=== PATIENT | male | born 1955 | race Caucasian/White ===

== ENCOUNTER 2020-02-08 09:23 | Outpatient (CLI) | payer OTHER, SELFPAY ==
--- NOTE | ~2020-02-08 | XR_ITS ---
EXAMINATION: XR lumbar spine min 4V EXAM DATE: 02/08/2020 09:49 INDICATION: Low back pain. TECHNIQUE: Lumber spine frontal, lateral, bilateral oblique projections. Coned down frontal and lat eral L5-S1 lumbar projections for interpretation. There is no prior study for comparison. FINDINGS: There is moderate lower lumbar facet arthropathy, mild upper lumbar facet arthropathy. Ther e is moderate disc disease at L5-S1. The vertebral bodies are aligned in the AP dimension. Vertebral body heights are maintained. No spondylolysis. Paraspinal soft tissue is unremarkable. Probable halie lithiasis. IMPRESSION: 1. Moderate lower lumbar facet arthropathy. 2. L5-S1 moderate disc disease.. Reviewed, dictated and finalized at location A.
--- NOTE | ~2020-02-08 | XR_ITS ---
EXAMINATION: XR thoracic spine 3V EXAM DATE: 02/08/2020 09:49 INDICATION: Thoracic pain. TECHNIQUE: Frontal and lateral projections of the thoracic spine as well as lateral swimmers projecti on of the upper thoracic spine for interpretation. Comparison is made to prior examination from 2016. FINDINGS: There is mild to moderate mid to lower thoracic disc disease and endplate osteophytes. Caleb tebral body heights are maintained. The vertebral bodies are aligned in the AP dimension. There are n o bony erosions identified. Paraspinal soft tissue is unremarkable. IMPRESSION: Mild to moderate mid to lower thoracic spondylosis. Reviewed, dictated and finalized at location A.
== END 2020-02-08 09:24 | disposition home or self-care (01) ==
PROVIDERS: PCP Family Medicine; Visit Provider Family Medicine
DX: M54.6 Pain in thoracic spine (principal); G89.29 Other chronic pain; M54.5 Low back pain; M47.814 Spondylosis without myelopathy or radiculopathy, thoracic region; M12.88 Other specific arthropathies, not elsewhere classified, other specified site; M51.9 Unspecified thoracic, thoracolumbar and lumbosacral intervertebral disc disorder
CPT/HCPCS: 72072; 72110

== ENCOUNTER 2020-02-10 07:32 | Outpatient (CLI) | payer OTHER, SELFPAY ==
--- NOTE | ~2020-02-10 | US_ITS ---
EXAMINATION: US right upper quadrant DATE: 02/10/2020 08:10 INDICATION: Gallstones. Back pain. TECHNIQUE: Multiple grayscale and Doppler ultrasound images of the abdomen were obtained. COMPARISON: CT dated 09/05/2018 and lumbar spine radiographs dated 02/08/2020 FINDINGS: Pancreatic body is suboptimally visualized but appears unremarkable. The head and tail of the pancrea s are not visualized. Liver has normal echogenicity and contour, with a smooth surface. No liver lesi on identified. No intrahepatic biliary duct dilation suspected. Portal venous flow was seen in the he patopetal, normal direction and has normal Doppler waveform. Mobile shadowing 6 mm gallstone in the o therwise normal-appearing gallbladder. The common bile duct measures 5 mm, which is normal. Sonograph ic Rodriguez sign was reported as negative by the global upstream marketing manager.Visualized portion of the right kidney dem onstrates normal echogenicity and contour with no hydronephrosis. IMPRESSION: 1. Cholelithiasis. Reviewed, dictated and finalized at location A. IMPRESSION: 1. Cholelithiasis.
== END 2020-02-10 07:33 | disposition home or self-care (01) ==
LOC: ANHIMG 07:33
PROVIDERS: PCP Family Medicine; Visit Provider Family Medicine
DX: K80.20 Calculus of gallbladder without cholecystitis without obstruction (principal); M54.6 Pain in thoracic spine; G89.29 Other chronic pain
CPT/HCPCS: 76705

== ENCOUNTER 2020-04-24 00:50 | Outpatient (CLI) | payer OTHER, SELFPAY ==
[2020-04-24 19:24] LABS: SARS-CoV-2 RNA PCR Negative
== END 2020-04-24 00:51 | disposition home or self-care (01) ==
LOC: ANHCOVIDDT 00:51
PROVIDERS: PCP Family Medicine; Visit Provider Urology
DX: Z01.812 Encounter for preprocedural laboratory examination (principal); Z11.59 Encounter for screening for other viral diseases
CPT/HCPCS: 87635; C9803; U0003

== ENCOUNTER 2020-04-26 01:37 | Day surgery (SDC) | payer OTHER, SELFPAY ==
[2020-04-19 08:56] VITALS: BMI 31.5
--- NOTE | 2020-04-24 06:56 | PM.HPGS ---
History of Present Illness History of Present Illness Consent: Risks, benefits, and alternatives have been discussed and questions answered. Patient agrees to proceed with procedure. Chief complaint: Prostate Cancer, Erectile Dysfunction Narrative: Gerard Shah is a 64 year old male wiith a known history of prostate carcinoma status post robotic prostatectomy a [facility] [address] in December 2018. Since surgery he has persistent stress urinary incontinence requiring approximately 1 pad per day. I have had a lengthy discussion about therapeutic options including pelvic floor therapy ( which he has previously done), male sling procedures, artificial urinary sphincter is and injection of bulking agents. He has elected to try the latter. He is aware this may require more than 1 procedure for maximal benefit. He is also aware of slight chance of urinary retention and possibility of persistent, unchanged stress incontinence. Review of Systems Cardiovascular: Cardiovascular: Denies chest pain, Denies lightheadedness, Denies palpitations and Denies dyspnea Respiratory: Respiratory: Denies dyspnea Gastrointestinal: Gastrointestinal: Denies diarrhea, Denies nausea and Denies vomiting Genitourinary: Genitourinary: Denies hematuria and Denies dysuria Endocrine: Endocrine: Denies palpitations [facility] Past Medical History Medical History Cholelithiasis NOS Chronic low back pain without sciatica Chronic right-sided thoracic back pain Erectile dysfunction after radical prostatectomy Urinary bladder incontinence Family History Family History Mother Asthma Patient's mother is , Onset Age: 89 Father Patient's father is , Onset Age: 91 Other Family history of allergic disorder Social History Social History Smoking status: Never smoker Alcohol intake: never Spiritual care concerns: No Meds Home Medications and Allergies Home Medications Medication Instructions Recorded Confirmed Type ibuprofen 400 mg PO Q6H 10/26/19 04/19/20 History omeprazole magnesium [Prilosec OTC] 20 mg PO DAILY 10/26/19 04/19/20 History Allergies Allergy/AdvReac Type Severity Reaction Status Date / Time Penicillins Allergy Unknown Hives Verified 04/19/20 08:42 Sulfa (Sulfonamide Allergy Unknown Hives Verified 04/19/20 08:42 Antibiotics) Exam Const: General: no acute distress Resp: Effort & Inspection: normal respiratory effort GI: Inspection: non-distended GI Palp: No abdominal tenderness and No Guarding due to palpation present (GI) Auscultation: normal bowel sounds Assessment and Plan Assessment and plan (1) Intrinsic sphincter deficiency: Code(s): N36.42 - Intrinsic sphincter deficiency (ISD) Status: Acute Assessment and Plan: Cystoscopy with Macroplastuque injection.
[2020-04-26] VITALS (8 sets, daily range): BP systolic 111–138; BP diastolic 56–83; PULSE 49–67; RESP 12–18; TEMP 36.1–36.2; O2SAT 96–100
[2020-04-26] MEDS: LACTATED RINGERS 1,000 ML 30 ML IV CONT (06:41)
--- NOTE | 2020-04-26 07:03 | WPDHPUPDATE1 ---
History and Physical Update Update Date/Time: 04/26/20 07:03 History and Physical has been reviewed, including an updated exam of the patient. There are NO changes in the patient's condition. Risks, benefits, and alternatives have been discussed and questions answered. Patient agrees to proceed with procedure.
--- NOTE | 2020-04-26 08:08 | WPDANESEPPF ---
Anes - Initial Pre Proc Eval Procedure: Operation Date: 04/26/20 08:30 Proposed Procedures p Cystoscopy with Macroplastique Injection Bulking Agent - Dennis Cobos MD Date/Time: 04/26/20 08:08 Surgeon: Dennis Cobos MD Pre Op Diagnosis: Prostate Cancer, Erectile Dysfunction Patient Data Age: 64 Gender: M Height: 5 ft 6 in Weight: 90.9 kg Allergies Allergy/AdvReac Type Severity Reaction Status Date / Time Penicillins Allergy Unknown Hives Verified 04/26/20 07:31 Sulfa (Sulfonamide Allergy Unknown Hives Verified 04/26/20 07:31 Antibiotics) Home Medications Medication Instructions Recorded Confirmed Type ibuprofen 400 mg PO Q6H 10/26/19 04/26/20 History omeprazole magnesium [Prilosec OTC] 20 mg PO DAILY 10/26/19 04/26/20 History Patient hx anesthesia problems: none Family hx anesthesia problems: none PMFSH Past Medical History Medical History Cholelithiasis NOS Chronic low back pain without sciatica Chronic right-sided thoracic back pain Erectile dysfunction after radical prostatectomy Urinary bladder incontinence Family History Family History Mother Asthma Patient's mother is , Onset Age: 89 Father Patient's father is , Onset Age: 91 Other Family history of allergic disorder Social History Social History Smoking status: Never smoker Alcohol intake: never Living arrangements: with family Spiritual care concerns: No Anes - Eval Final PreProcedure Day of Procedure 04/26/20 08:08 Patient weight: overweight Heart: regular rate and rhythm Lungs: clear to auscultation Airway: Mallampati scale Neurological: alert and oriented Last oral intake: >/= 8 hours ASA classification: II Emergent: no Anesthetic plan: proceed Anesthesia type and monitoring: general LMA and standard monitoring Informed Consent: The patient's anesthetic plan and its attendant risks and benefits were discussed with the patient/family/POA. Questions were solicited and answers provided to the satisfaction of the patient/family/POA.
[2020-04-26] MEDS: levoFLOXacin 500 MG/D5W 100 ML 500 MG/100 ML BAG 100 MG IVPB (08:20)
[2020-04-26] MEDS: LIDOCAINE HCL 2% GEL UROJET 10 ML PKG MUCOUS MEM (08:24)
--- NOTE | 2020-04-26 08:49 | P.OP_ITS ---
Procedure Note - Detailed Date of procedure: 04/26/20 Pre-op diagnosis: Prostate Cancer, Erectile Dysfunction Post-op diagnosis: other (Prostate Cancer, Intrinsic sphincter defeciency, meatal stenosis) Procedure performed: 1. Cysto., urethral dilatation. 2. Macroplastique injection. Description of procedure: The patient was brought to the operative suite where he was prepped and draped in the routine fashion while in the dorsal lithotomy position after the uneventful administration of systemic sedation by the anesthesia department. 2% lidocaine jelly was introduced into the urethra and allowed to stand for an appropriate period of time. Cystoscopy could only be undertaken following dilatation of a meatal stenosis from 14->24F with Eli sounds. The prostate is surgically absent. The bladder mucosa was endoscopically normal without hyperemia or neoplasm. Using the Macroplastique delivery system a total of [] vials were injected just distal to the bladder neck(1/4 delivered at the 3:00 and 9:00 position / ? delivered at the 6:00 position). After each injection the the needle is not withdrawn from the tissue for 15-seconds, allowing time for the agent to solidify. At the termination of the procedure there was good circumferential coaptation of the proximal urethra. After removal of the cystoscope the bladder was drained with a 12F red rubber catheter. The patient tolerated the procedure well and was taken to the outpatient recovery room in good condition. Anesthesia: GLMA Surgeon: Dennis Cobos MD Restoration Silversmith: None Estimated blood loss (mL): 0 Drains: No Packing: No Pathology: none sent Complications: No immediate complications Condition: stable Disposition: PACU
== END 2020-04-26 11:11 | disposition home or self-care (01) ==
PROVIDERS: PCP Family Medicine; Visit Provider Urology
PROC: 3E0K8GC Introduction of Other Therapeutic Substance into Genitourinary Tract, Via Natural or Artificial Opening Endoscopic (ICD-10-PCS; CPT 51715; principal; 2020-04-26 08:30)
DX: N36.42 Intrinsic sphincter deficiency (ISD) (principal); N39.3 Stress incontinence (female) (male); N52.9 Male erectile dysfunction, unspecified; Z85.46 Personal history of malignant neoplasm of prostate; Z90.79 Acquired absence of other genital organ(s)
CPT/HCPCS: 51715; A9270; J1100; J1956; J2250; J2405; J2704; J3010; J7120; L8606

== ENCOUNTER → 2020-11-23 11:14 | Outpatient (CLI) | payer OTHER, SELFPAY ==
--- NOTE | ~2020-11-23 | MR_ITS ---
EXAMINATION: MR knee RT wo con DATE: 11/23/2020 11:52 INDICATION: Right knee pain TECHNIQUE: Magnetic resonance imaging (MRI) of the right knee was performed without intravenous contr ast. Sequences included coronal PD-weighted FSE, coronal PD-weighted FS FSE, sagittal T2-weighted FS E, sagittal PD-weighted FS FSE and axial PD weighted fat saturated FSE. COMPARISON: None. FINDINGS: Medial compartment: Complex tear of the medial meniscus with longitudinal horizontal tear plane extending to the inferior articular surface of the posterior horn and posterior body and with small radial tear along the free edge extending no greater than the inner third of the posterior horn. Partial-thickness chondral fis suring with subtle underlying cortical irregularity at the lateral aspect of the central weightbearin g medial femoral condyle overlying the posterior horn of the medial meniscus. Lateral compartment: Lateral meniscus is normal. Articular cartilage is normal. Patellofemoral compartment: Deep chondral fissuring without degenerative subchondral changes at the patellar apical ridge with ad ditional partial thickness chondral fissuring along the lateral patellar facet. Small region of deep chondral fissuring with underlying cortical irregularity at the inferior aspect of the medial trochle a. Ligaments and tendons: Anterior and posterior cruciate ligaments are normal. The medial collateral ligament and fibular silvia ateral ligament complex are normal. The extensor mechanism is normal. The visualized medial and later al hamstring tendons as well as the iliotibial band are normal. Fluid: Physiologic amount of fluid in the joint space. No loose osteochondral bodies identified. Osseous/other: Normal marrow signal. No fracture or pathologic marrow replacing process. IMPRESSION: 1. Complex medial meniscal tear. 2. Mild medial and patellofemoral osteoarthritis with small regions of moderate and high-grade chondr al malacia along the weightbearing medial femoral condyle the medial trochlea and patellar apical rid ge and lateral facet. Reviewed, dictated and finalized at location A. FIRST ASSIST IMPRESSION: 1. Complex medial meniscal tear. 2. Mild medial and patellofemoral osteoarthritis with small regions of moderate and high-grade chondral malacia along the weightbearing medial femoral condyle the medial trochlea and patellar apical ridge and lateral facet.
== END ==
PROVIDERS: Visit Provider Orthopaedic Surgery
DX: S83.231A Complex tear of medial meniscus, current injury, right knee, initial encounter (principal); X58.XXXA Exposure to other specified factors, initial encounter; M17.11 Unilateral primary osteoarthritis, right knee
CPT/HCPCS: 73721

== ENCOUNTER → 2021-01-17 11:07 | Outpatient (CLI) | payer OTHER, SELFPAY ==
--- NOTE | ~2021-01-17 | XR_ITS ---
EXAMINATION: XR lumbar spine 2-3V DATE: 01/17/2021 12:08 INDICATION: Low back pain TECHNIQUE: Anteroposterior and lateral views of the lumbar spine, and cone-down lateral view of the l umbosacral junction were obtained. COMPARISON: 02/08/2020 FINDINGS: The vertebral body heights and alignment are normal. There is no fracture. There is moderat e loss of intervertebral disc space height at L5-S1. Moderate facet osteoarthritis of the lower lumba r spine is unchanged. A large volume of colonic stool is present. A calcification of the right upper quadrant may reflect cholelithiasis. IMPRESSION: 1. Moderate lower spondylosis without acute findings or significant interval change. Reviewed, dictated and finalized at location B. IMPRESSION: 1. Moderate lower spondylosis without acute findings or significant interval ch trina.
--- NOTE | ~2021-01-17 | XR_ITS ---
EXAMINATION: XR hip LT min 2V DATE: 01/17/2021 12:08 INDICATION: Left hip pain. TECHNIQUE: 2 views of left hip were obtained. COMPARISON: None. FINDINGS: Bone alignment is normal. No fracture. There is mild left hip osteoarthritis characterized by tiny marginal osteophytes. IMPRESSION: 1. Mild left hip osteoarthritis. Reviewed, dictated and finalized at location A.
== END ==
PROVIDERS: PCP Family Medicine; Visit Provider Nurse Practitioner Family
DX: M47.896 Other spondylosis, lumbar region (principal); M17.12 Unilateral primary osteoarthritis, left knee
CPT/HCPCS: 72100; 73502

== ENCOUNTER 2021-01-17 16:03 | Outpatient (CLI) | payer OTHER, SELFPAY | END 2021-01-17 16:04 | disposition home or self-care (01) | LOC: ANHCOVIDVC 16:03 | PROVIDERS: PCP Family Medicine | DX: Z23 Encounter for immunization (principal) | CPT/HCPCS: 0001A; 91300 ==

== ENCOUNTER 2021-02-05 12:59 | Emergency (ER) | payer OTHER, SELFPAY ==
[2021-02-05 13:07] VITALS: BP 124/67; PULSE 64; RESP 12; TEMP 36.6; O2SAT 99
--- NOTE | 2021-02-05 13:12 | ED.DENTAL ---
HPI - Dental/Oral General Chief complaint: Dental/Oral Stated complaint: DENTAL PAIN Time Seen by Provider: 02/05/21 13:12 Source: patient, family and RN notes reviewed Mode of arrival: ambulatory Limitations: no limitations History of Present Illness HPI Narrative: 65-year-old male who [facility] with 4-day history of dental abscess along the outside gum of #3 tooth which is whitish in color, raised with some stated drainage. Patient has crown to tooth which is nearest to abscess and was unable to get into his dentist till next week. Patient states that his dentist told [facility] to [facility] so he could get antibiotic started. Patient denies any difficulty with his swallowing or any difficulty breathing. MD Complaint: tooth pain Location: Tooth # (#3) Onset (ago): day(s) (4) Duration: constant Severity: mild Severity scale (1-10): 3 Exacerbating factors: chewing Context: other (crown) Associated symptoms: gum swelling Related Data Allergies Allergy/AdvReac Type Severity Reaction Status Date / Time Penicillins Allergy Unknown Hives Verified 04/26/20 07:31 Sulfa (Sulfonamide Allergy Unknown Hives Verified 04/26/20 07:31 Antibiotics) Review of Systems Review of Systems: Narrative: CONSTITUTIONAL: Denies fever, chills, or sweats. EYES: Denies visual changes, redness, or discharge. ENT: Denies rhinorrhea, congestion, sore throat, or otalgia. Positive for dental pain swelling of gum CARDIOVASCULAR: Denies chest pain, palpitations, or edema. RESPIRATORY: Denies cough or dyspnea. GASTROINTESTINAL: Denies abdominal pain, nausea, vomiting, or diarrhea. GENITOURINARY: Denies dysuria or hematuria. SKIN: Denies rash or itching. MUSCULOSKELETAL: Denies back pain, joint pain, or myalgia. NEUROLOGIC: Denies headache, numbness, or weakness. PSYCHIATRIC: Denies anxiety or depression. All systems reviewed & are unremarkable except as noted in HPI and below [facility] Past Medical History Medical History (Updated 02/05/21 @ 14:09 by Radha Landa NP) Abnormal fasting glucose (12/14/20) glucose 120 on 12/15/2019 Actinic keratosis (12/14/20) Acute bilateral low back pain with left-sided sciatica BMI 31.0-31.9,adult BMI 32.0-32.9,adult Cholelithiasis NOS Chronic low back pain without sciatica Chronic right-sided thoracic back pain Colon cancer screening Encounter for wellness examination in adult Erectile dysfunction after radical prostatectomy Fungal infection of toenail Ingrown toenail of right foot Mixed hyperlipidemia LDL 160 on 12/14/2020 Right knee pain Seasonal allergic rhinitis Urinary bladder incontinence Surgical History Surgical History (Updated 02/05/21 @ 14:09 by Radha Landa NP) History of radical prostatectomy S/P left inguinal herniorrhaphy Family History Family History Mother Asthma Patient's mother is , Onset Age: 89 Father Patient's father is , Onset Age: 91 Other Family history of allergic disorder Social History Social History (Updated 02/05/21 @ 14:10 by Radha Landa NP) Smoking status: Never smoker Alcohol intake: never Substance use: never Living arrangements: with family Gender identity (if verbalized by the patient): Male Spiritual care concerns: No Comments At time of signature, agree with nursing past medical, surgical, social and family history. There is no relevant family history pertinent to the presenting complaint Exam Narrative: Exam Narrative: GENERAL: Well-appearing, well-nourished, and in no acute distress. HEAD: Normocephalic, atraumatic. EYES: PERRLA and EOMI. ENT: Nares clear, no rhinorrhea or epistaxis. Mucous membranes moist.TM's normal with good light reflex, throat pink with no redness, swelling, lesions or any difficulty with his swallowing, raised white abscess area to outer side of #3 tooth with some surrounding red
== END 2021-02-05 13:41 | disposition home or self-care (01) ==
PROVIDERS: Emergency Provider Registered Nurse; PCP Family Medicine
DX: K04.7 Periapical abscess without sinus (principal)
CPT/HCPCS: 99213; G0463

== ENCOUNTER 2021-02-07 16:26 | Outpatient (CLI) | payer OTHER, SELFPAY | END 2021-02-07 16:27 | disposition home or self-care (01) | LOC: ANHCOVIDVC 16:27 | PROVIDERS: PCP Family Medicine | DX: Z23 Encounter for immunization (principal) | CPT/HCPCS: 0002A; 91300 ==

== ENCOUNTER 2021-02-22 07:14 | Emergency (ER) | payer OTHER, SELFPAY ==
--- NOTE | ~2021-02-22 | XR_ITS ---
EXAMINATION: XR knee LT min 4V EXAM DATE: 02/22/2021 10:19 INDICATION: Knee pain; medial Lt knee pain x 3 days; no injury. TECHNIQUE: Left knee frontal, crosstable lateral, orthogonal oblique projections for interpretation. There is no prior study for comparison. FINDINGS: No evidence osteochondral defect or joint body in the left knee joint. There are no acute fractures or dislocations identified. There is no subcutaneous gas. The soft tissue is unremarkabl e. There is mild tricompartmental primary osteoarthritis. No joint effusion. IMPRESSION: Mild left knee osteoarthritis. Reviewed, dictated and finalized at location A.
[2021-02-22 07:28] VITALS: BP 131/73; PULSE 64; RESP 18; TEMP 36.2; O2SAT 99
[2021-02-22] MEDS: KETOROLAC 30 MG/ML VIAL (*BKC) IV PUSH (07:57)
[2021-02-22 08:00] LABS: Basophils Absolute Auto 0.1 K/mm3 (0.0-0.1); Basophils Percent Auto 0.7 % (0.2-1.2); Eosinophils Absolute Auto 0.3 K/mm3 (0-0.3); Eosinophils Percent Auto 4.5 % (0-4.4); Hematocrit 50.5 % (42.0-52.0); Hemoglobin 16.6 g/dL (14.0-18.0); Immature Granulocyte Absolute 0.08 K/mm3 (0.00-0.031); Immature Granulocyte Percent A 1.2 % (0-0.5); Lymphocytes Absolute Auto 2.36 K/mm3 (0.9-3.2); Lymphocytes Percent Auto 35.2 % (18.3-44.2); Mean Corpuscular HGB Conc 32.9 g/dl (32-36); Mean Corpuscular Hemoglobin 26.9 pg (26-34); Monocytes Absolute Auto 0.6 K/mm3 (0.1-0.6); Monocytes Percent Auto 8.8 % (2.6-8.5); Neutrophils Absolute Auto 3.3 K/mm3 (1.3-6.7); Neutrophils Percent Auto 49.6 % (45.5-73.1); Platelet Count Result 286 k/mm3 (150-375); Red Blood Count 6.16 M/mm3 (4.6-6.20); Red Cell Distribution Width 14.3 % (11.5-14.5); White Blood Count 6.7 K/mm3 (4.5-10.0)
[2021-02-22 08:31] LABS: Anion Gap 5 mmol/L (8-16); Blood Urea Nitrogen 19 mg/dL (9-20); CRP 0.9 mg/dL (<1.0); Calcium 9.1 mg/dL (8.4-10.2); Carbon Dioxide 29 mmol/L (22-30); Chloride 105 mmol/L (98-107); Estimated CRCL calculation 60 ml/min; Estimated Glomerular Filt Rate > 60; Glucose 109 mg/dL (75-110); Potassium 4.3 mmol/L (3.4-5.0); Sodium 139 mmol/L (137-145)
[2021-02-22] MEDS: fentaNYL CITRATE INJ (*CRX) 100 MCG/2 ML VIAL 50 MCG IV PUSH ×2 (08:54→10:04)
[2021-02-22] MEDS: ONDANSETRON INJ 4 MG/2 ML VIAL IV PUSH (08:55)
[2021-02-22 10:50] VITALS: BP 131/74; O2SAT 99
--- NOTE | 2021-02-22 10:57 | ED.GENADULT ---
HPI - General Adult General Chief complaint: Extremity Injury, Lower Stated complaint: knee/back pain Time Seen by Provider: 02/22/21 07:28 Source: patient and family Mode of arrival: ambulatory Limitations: no limitations History of Present Illness HPI narrative: 65-year-old with a history of osteoarthritis of both knees here with a complains of pain to his left knee started 1 day ago. Patient states that he has been climbing up and down the ladder might of aggravated it but denies any fall. He denies any fever or chills. He also states that he is having pain in his lower back. Onset (ago): day(s) (2) Location: lower extremity Radiation: back Severity: moderate Quality: constant Pain Consistency: constant Relieving factors: immobilization Exacerbating factors: movement Associated symptoms: denies other symptoms Related Data Home Medications Medication Instructions Recorded Confirmed omeprazole [Prilosec] 20 mg PO DAILY 02/22/21 Allergies Allergy/AdvReac Type Severity Reaction Status Date / Time Penicillins Allergy Unknown Hives Verified 02/22/21 08:11 Sulfa (Sulfonamide Allergy Unknown Hives Verified 02/22/21 08:11 Antibiotics) Review of Systems Review of Systems: All systems reviewed & are unremarkable except as noted in HPI and below Constitutional: Constitutional: Reports no additional constitutional complaints Eyes: Eyes: Reports no additional eye complaints ENT: Reports system reviewed and no additional complaints, except as documented Cardiovascular: Cardiovascular: Reports no additional cardiovascular complaints Respiratory: Respiratory: Reports no additional respiratory complaints Gastrointestinal: Gastrointestinal: Reports no additional gastrointestinal complaints Musculoskeletal: Musculoskeletal: Reports as per HPI Neurologic: Reports system reviewed and no additional complaints, except as documented Psychiatric: Psychiatric: Reports no additional psychiatric complaints [facility] Past Medical History Medical History Abnormal fasting glucose (12/14/20) glucose 120 on 12/15/2019 Abscessed tooth Actinic keratosis (12/14/20) Acute bilateral low back pain with left-sided sciatica BMI 31.0-31.9,adult BMI 32.0-32.9,adult Cholelithiasis NOS Chronic low back pain without sciatica Chronic right-sided thoracic back pain Colon cancer screening Encounter for wellness examination in adult Erectile dysfunction after radical prostatectomy Fungal infection of toenail Ingrown toenail of right foot Mixed hyperlipidemia LDL 160 on 12/14/2020 Right knee pain Seasonal allergic rhinitis Urinary bladder incontinence Surgical History Surgical History History of radical prostatectomy S/P left inguinal herniorrhaphy Family History Family History Mother Asthma Patient's mother is , Onset Age: 89 Father Patient's father is , Onset Age: 91 Other Family history of allergic disorder Social History Social History (Updated 02/05/21 @ 14:10 by Radha Landa NP) Smoking status: Never smoker Alcohol intake: never Substance use: never Gender identity (if verbalized by the patient): Male Spiritual care concerns: No Exam Narrative: Exam Narrative: GENERAL: Well-appearing, well-nourished, and in no acute distress. HEAD: Normocephalic, atraumatic. EYES: PERRLA and EOMI. ENT: Nares clear, no rhinorrhea or epistaxis. Mucous membranes moist. NECK: Supple. CHEST: Clear to auscultation. No respiratory distress. HEART: Regular rate and rhythm. No murmur heard. Normal peripheral pulses. EXTREMITIES: Painful ROM of the left knee ,no effusion SKIN: Warm, dry, no rash. NEURO: No focal deficits. Alert and oriented x3. PSYCH: Normal mood and affect. Course Course Emergency Course: Patient
[2021-02-22 11:25] VITALS: BP 122/73; PULSE 60; RESP 18; O2SAT 97
== END 2021-02-22 11:35 | disposition home or self-care (01) ==
PROVIDERS: Emergency Provider Family Medicine; PCP Family Medicine
DX: M17.12 Unilateral primary osteoarthritis, left knee (principal); E78.2 Mixed hyperlipidemia; G89.29 Other chronic pain; M54.5 Low back pain; M54.6 Pain in thoracic spine; N52.31 Erectile dysfunction following radical prostatectomy; Z90.79 Acquired absence of other genital organ(s)
CPT/HCPCS: 36415; 73564; 80048; 85025; 86140; 96374; 96375; 96376; 99284; J1100; J1885; J2405; J3010

== ENCOUNTER 2021-04-30 08:03 | Outpatient (CLI) | payer OTHER, SELFPAY ==
--- NOTE | ~2021-04-30 | MR_ITS ---
EXAMINATION: MR lumbar spine wo con EXAM DATE: 04/30/2021 08:55 INDICATION: M54.42 - Lumbago with sciatica, left side. TECHNIQUE: Multi-sequential, multiplanar MR images of the lumbar spine were obtained without contrast . Sagittal T1, T2, T2 fat saturation images. Axial T2 weighted images. There is no prior study for comparison. FINDINGS: Rudimentary disc space at S1-2. There is 2 mm anterolisthesis L5 on S1 with moderate to sev ere loss of this disc height but only mild degenerative signal change. The conus medullaris terminate s at the L1/2 level and has normal signal intensity and morphology. There are no suspicious marrow s ignal abnormalities. Paraspinal soft tissue is unremarkable. Level by level evaluation: T12-L1: Disc does not extend beyond the endplate margin. Facet arthropathy: None. Neural foraminal stenosis: No stenosis. Central canal stenosis: No stenosis. L1-L2: Disc does not extend beyond the endplate margin. Facet arthropathy: Mild. Neural foraminal stenosis: No stenosis. Central canal stenosis: No stenosis. L2-L3: Disc does not extend beyond the endplate margin. Facet arthropathy: Mild. Neural foraminal stenosis: No stenosis. Central canal stenosis: No stenosis. L3-L4: There is a mild diffuse disc bulge. Facet arthropathy: Mild. Neural foraminal stenosis: No stenosis. Central canal stenosis: No stenosis. L4-L5: There is a mild diffuse disc bulge. Facet arthropathy: Moderate. Neural foraminal stenosis: No stenosis. Central canal stenosis: No stenosis. L5-S1: There is a moderate diffuse disc bulge. Facet arthropathy: Mild to moderate. Neural foraminal stenosis: Mild to moderate bilateral. Central canal stenosis: Overall mild to moderate with moderate narrowing of the lateral recesses left greater than right. IMPRESSION: 1. Up to moderate lower lumbar spondylosis. Reviewed, dictated and finalized at location G.
== END 2021-04-30 08:04 | disposition home or self-care (01) ==
PROVIDERS: PCP Family Medicine; Visit Provider Family Medicine
DX: M54.42 Lumbago with sciatica, left side (principal); G89.29 Other chronic pain; M47.896 Other spondylosis, lumbar region
CPT/HCPCS: 72148

== ENCOUNTER 2021-05-01 20:39 | Emergency (ER) | payer OTHER, SELFPAY ==
[2021-05-01 20:40] VITALS: BP 154/69; PULSE 71; RESP 18; TEMP 36.1; O2SAT 99
[2021-05-01] MEDS: KETOROLAC (*BKC) 60 MG/2 ML VIAL IM (21:39)
[2021-05-01] MEDS: diazePAM (*CRX) 5 MG TABLET PO (21:40)
--- NOTE | 2021-05-01 21:57 | ED.BACK ---
HPI - Back Pain/Injury General Chief Complaint: Back Pain/Injury Stated Complaint: back pain Time Seen by Provider: 05/01/21 20:52 Source: RN notes reviewed History of Present Illness HPI Narrative: Patient presents to emergency department from home for back pain. Pain is located left lower back and radiates around the left hip and upper leg. Patient states he initially injured it approximately 4 months ago doing some heavy lifting he states that he has been seeing pain management and had a injection of his lower back on Thursday and he states the pain increased after having the injection he states he had an MRI done yesterday at our facility following that and then followed up with pain management today that time they had him see a therapist and use a massage in the region to help she is to see me the pain is increasing came to the ER secondary to pain management he denies any new trauma or injury he denies any fevers or chills bowel or bladder incontinence numbness of the leg or any other symptoms of concern states he is not taking medication at home for the pain Related Data Home Medications Medication Instructions Recorded Confirmed omeprazole [Prilosec] 20 mg PO DAILY 02/22/21 04/23/21 Allergies Allergy/AdvReac Type Severity Reaction Status Date / Time Penicillins Allergy Unknown Hives Verified 05/01/21 21:43 Sulfa (Sulfonamide Allergy Unknown Hives Verified 05/01/21 21:43 Antibiotics) Review of Systems Review of Systems: Gen.: Denies fevers or chills ENT: Denies congestion Respiratory: Denies shortness of breath CV: Denies chest pain GI: Denies abdominal pain nausea, emesis or diarrhea denies bowel or bladder incontinence Musculoskeletal: See HPI Neuro: Denies numbness, tingling, weakness or focal weakness Skin: Denies rash Except as documented, all other systems reviewed and negative [facility] Past Medical History Medical History Abnormal fasting glucose (12/14/20) glucose 120 on 12/15/2019 Abscessed tooth Actinic keratosis (12/14/20) Acute bilateral low back pain with left-sided sciatica (~12/28/20) Acute internal derangement of left knee BMI 31.0-31.9,adult BMI 32.0-32.9,adult Cholelithiasis NOS Chronic low back pain with left-sided sciatica (~12/28/20) MRI on 04/30/2021 reveals mild to moderate degenerative disc disease and arthritis with moderate bulging disc at L5-S1 with facet arthropathy worse on the left than the right. 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 Left knee pain Low back pain radiating to left lower extremity Mixed hyperlipidemia LDL 160 on 12/14/2020 Right knee pain Seasonal allergic rhinitis Urinary bladder incontinence Surgical History Surgical History History of radical prostatectomy S/P left inguinal herniorrhaphy Family History Family History Mother Asthma Patient's mother is , Onset Age: 89 Father Patient's father is , Onset Age: 91 Other Family history of allergic disorder Social History Social History Smoking status: Never smoker Alcohol intake: never Substance use: never Gender identity (if verbalized by the patient): Male Spiritual care concerns: No Exam Narrative: APPEARANCE: No acute distress, nontoxic, resting in bed Eyes: EOMI HEENT: Normocephalic, atraumatic, CV: Regular rate and rhythm without murmur RESPIRATORY: No respiratory distress. Clear to auscultation bilaterally. Abdomen: Soft and nontender, no amadou
[2021-05-01 22:10] VITALS: BP 138/68; PULSE 77; RESP 14; TEMP 36.7; O2SAT 97
== END 2021-05-01 22:10 | disposition home or self-care (01) ==
PROVIDERS: Emergency Provider Emergency Medicine; PCP Family Medicine
DX: M54.5 Low back pain (principal); E78.2 Mixed hyperlipidemia; Z90.79 Acquired absence of other genital organ(s)
CPT/HCPCS: 96372; 99283; A9270; J1885

== ENCOUNTER → 2021-10-14 10:51 | Outpatient (CLI) | payer OTHER, SELFPAY ==
--- NOTE | ~2021-10-14 | XR_ITS ---
EXAMINATION: XR hand LT min 3V, XR hand RT min 3V DATE: 10/14/2021 11:08 INDICATION: 2 months of posttraumatic pain at the joints of the bilateral hands. TECHNIQUE: 1. Posteroanterior, oblique and lateral views of the left hand were obtained. 2. Posteroanterior, oblique and lateral views of the right hand were obtained. COMPARISON: None. FINDINGS: Normal alignment at the bilateral hands. No fracture. Relatively symmetric pattern of polyarticular o steoarthritis at the bilateral hands, moderate to severe at the first carpal metacarpal joints, moder ate severity at the bilateral first interphalangeal joints, moderate at the right and mild at the lef t distal radioulnar joints and mild at the bilateral triscaphe, first metacarpophalangeal and many of the remaining interphalangeal joints with distal predominance. No erosions to suggest an inflammator y arthritis. Soft tissues are unremarkable. IMPRESSION: 1. Polyarticular osteoarthritis at the bilateral hands and wrists, moderate to severe at the first ca rpal metacarpal joints. Reviewed, dictated and finalized at location A. NAUTICS COMMISSION DIRECTOR IMPRESSION: 1. Polyarticular osteoarthritis at the bilateral hands and wrists, moderate to severe at the first carpal metacarpal joints.
== END ==
PROVIDERS: PCP Family Medicine; Visit Provider Nurse Practitioner Family
DX: M19.041 Primary osteoarthritis, right hand (principal); M19.042 Primary osteoarthritis, left hand
CPT/HCPCS: 73130

== ENCOUNTER 2021-11-21 11:05 | Emergency (ER) | payer OTHER, SELFPAY ==
--- NOTE | ~2021-11-21 | XR_ITS ---
EXAMINATION: XR chest 2V DATE: 11/21/2021 11:39 INDICATION: Mid back pain with deep inspiration TECHNIQUE: PA and lateral views of the chest were obtained. COMPARISON: Chest radiograph dated 08/25/[address] abdomen and pelvis dated 09/05/2018 FINDINGS: The lungs remain clear with no focal airspace opacities, pulmonary edema, pleural effusion or pneumot horax. The cardiomediastinal silhouette is normal. Calcified gallstone in the right upper quadrant. M oderate thoracic spondylosis with chronic mild anterior wedging at T7. IMPRESSION: 1. No acute cardiopulmonary disease. Reviewed, dictated and finalized at location A. BIAS MACHINE OPERATOR
[2021-11-21 11:09] VITALS: BP 150/68; PULSE 67; RESP 16; TEMP 36.3; O2SAT 100
--- NOTE | 2021-11-21 11:11 | ED.MALEGU ---
HPI - Male Genitourinary General Chief complaint: Back Pain/Injury Stated complaint: FLANK PAIN Time Seen by Provider: 11/21/21 11:20 Source: patient, RN notes reviewed and old records reviewed Mode of arrival: ambulatory Limitations: no limitations History of Present Illness HPI Narrative: 66-year-old male who presents to [facility] with complaints of pain to right back region under posterior rib cage region for the past 1.5 weeks, he describes pain as flank pain. Patient does have history of prostate cancer with radical prostatectomy and also has history of lumbar back pain and has had epidural injections in the past.He states that he went to pain clinic yesterday and they did back x-ray and recommended he get MRI. He states that pain is worse when sitting and when he first changes positions. Patient did have COVID one month ago, pain and spasms noted with deep breathing. Complaint: other (right thoracic back pain) Onset (ago): week(s) (1.5 weeks) Duration: constant and other (intermittent sharp pain) Severity: moderate Severity scale (1-10): 5 Quality: aching and sharp Relieving factors: none Exacerbating factors: movement Associated symptoms: Reports other (spasms right thoracic back) Related Data Home Medications Medication Instructions Recorded Confirmed omeprazole [Prilosec] 20 mg PO DAILY 02/22/21 11/21/21 Allergies Allergy/AdvReac Type Severity Reaction Status Date / Time Penicillins Allergy Unknown Hives Verified 11/21/21 11:11 Sulfa (Sulfonamide Allergy Unknown Hives Verified 11/21/21 11:11 Antibiotics) Review of Systems Review of Systems: CONSTITUTIONAL: Denies fever, chills, or sweats. EYES: Denies visual changes, redness, or discharge. ENT: Denies rhinorrhea, congestion, sore throat, or otalgia. CARDIOVASCULAR: Denies chest pain, palpitations, or edema. RESPIRATORY: Denies cough or dyspnea. GASTROINTESTINAL: Denies abdominal pain, nausea, vomiting, or diarrhea. GENITOURINARY: Denies dysuria or hematuria. SKIN: Denies rash or itching. MUSCULOSKELETAL: Positive for right thoracic region pain under posterior rib area in back, joint pain, or myalgia. NEUROLOGIC: Denies headache, numbness, or weakness. PSYCHIATRIC: Denies anxiety or depression. All systems reviewed & are unremarkable except as noted in HPI and below PMFSH Past Medical History Medical History Abnormal fasting glucose (12/14/20) glucose 120 on 12/15/2019 Abscessed tooth Actinic keratosis (12/14/20) Acute bilateral low back pain with left-sided sciatica (~12/28/20) Acute bronchitis (~10/21/21) Acute internal derangement of left knee BMI 31.0-31.9,adult BMI 32.0-32.9,adult Carpal tunnel syndrome on both sides Cholelithiasis NOS Chronic low back pain with left-sided sciatica (~12/28/20) MRI on 04/30/2021 reveals mild to moderate degenerative disc disease and arthritis with moderate bulging disc at L5-S1 with facet arthropathy worse on the left than the right. 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 Other
== END 2021-11-21 12:06 | disposition home or self-care (01) ==
PROVIDERS: Emergency Provider Registered Nurse; PCP Family Medicine
DX: M54.6 Pain in thoracic spine (principal); M62.830 Muscle spasm of back; E78.2 Mixed hyperlipidemia; Z86.16 Personal history of COVID-19
CPT/HCPCS: 71046; 81003; 99213; G0463

== ENCOUNTER → 2021-12-02 08:29 | Outpatient (CLI) | payer OTHER, SELFPAY ==
--- NOTE | ~2021-12-02 | MR_ITS ---
EXAMINATION: MR thoracic spine wo con EXAM DATE: 12/02/2021 09:09 INDICATION: Thoracic pain TECHNIQUE: Multi-sequential, multiplanar MR images of the thoracic spine were obtained without contra st. Sagittal T1, T2, T2 fat saturation, axial T2 weighted images reviewed. There is no prior study for comparison. FINDINGS: There is mild to moderate mid and lower thoracic disc disease. No significant central canal or neural foraminal stenosis. The spinal cord signal intensity and intrinsic morphology is normal. T here are no suspicious marrow signal abnormalities. The vertebral bodies are aligned in the AP dimens ion. Mild to moderate diffuse thoracic facet arthropathy. Paraspinal soft tissue is unremarkable. IMPRESSION: Mild to moderate thoracic spondylosis. No acute findings. Reviewed, dictated and finalized at location B. KLAYER HELPER
== END ==
PROVIDERS: PCP Family Medicine; Visit Provider Nurse Practitioner Family
DX: M47.894 Other spondylosis, thoracic region (principal)
CPT/HCPCS: 72146

== ENCOUNTER 2022-01-08 16:02 | Emergency (ER) | payer OTHER, SELFPAY ==
--- NOTE | ~2022-01-08 | XR_ITS ---
EXAM: [id number] HISTORY: PAIN RIGHT SIDE CHEST/RIBS NO INJURY COMPARISON: X-ray chest 2 views 11/21/2021. FINDINGS: Lungs are clear. Normal cardiomediastinal silhouette. Degenerative changes in the thoracic spine. Calcified gallstone. No fracture or dislocation. IMPRESSION: No right rib fractures detected. Reviewed, dictated and finalized at location K.
[2022-01-08 16:09] VITALS: BP 156/87; PULSE 81; RESP 16; TEMP 36.4; O2SAT 99
--- NOTE | 2022-01-08 16:13 | ED.BACK ---
HPI - Back Pain/Injury General Chief Complaint: Back Pain/Injury Stated Complaint: BACK PAIN Time Seen by Provider: 01/08/22 16:13 Source: patient and RN notes reviewed History of Present Illness HPI Narrative: Patient is a 66-year-old male who presents the urgent care with complaints of right sided rib/thoracic back pain. Patient was seen in November for thoracic pain and given tramadol and Flexeril. Patient states he believes those medications did work at the time. Patient has had back pains reported for years and has had MRIs and several x-rays. Patient is also had injections to the back without much improvement. Patient states that his physician is aware of his chronic pain and was instructed to follow-up at our facility today for right rib x-rays. Patient states that the new pain just started recently and denies of any heavy lifting/pushing/pulling or falls. Denies of any shortness of breath or chest pain. No other acute complaints. No acute distress noted. Patient aware of the plan of care. Some parts of this dictation were generated by voice recognition software and may contain typographical and/or grammatical inaccuracies. Related Data Home Medications Medication Instructions Recorded Confirmed omeprazole [Prilosec] 20 mg PO DAILY 02/22/21 12/18/21 Allergies Allergy/AdvReac Type Severity Reaction Status Date / Time Penicillins Allergy Unknown Hives Verified 12/18/21 13:45 Sulfa (Sulfonamide Allergy Unknown Hives Verified 12/18/21 13:45 Antibiotics) Review of Systems Review of Systems: CONSTITUTIONAL: Denies fever, chills, or sweats. EYES: Denies visual changes, redness, or discharge. ENT: Denies rhinorrhea, congestion, sore throat, or otalgia. CARDIOVASCULAR: Denies chest pain, palpitations, or edema. RESPIRATORY: Denies cough or dyspnea. GASTROINTESTINAL: Denies abdominal pain, nausea, vomiting, or diarrhea. GENITOURINARY: Denies dysuria or hematuria. SKIN: Denies rash or itching. MUSCULOSKELETAL: Reports of right mid back to right rib pain NEUROLOGIC: Denies headache, numbness, or weakness. All other systems reviewed are negative, except as documented in HPI. [facility] Past Medical History Medical History (Updated 01/08/22 @ 16:58 by RICCI Bhatia) Abnormal fasting glucose (12/14/20) glucose 120 on 12/15/2019 Abscessed tooth Actinic keratosis (12/14/20) Acute bilateral low back pain with left-sided sciatica (~12/28/20) Acute bronchitis (~10/21/21) Acute internal derangement of left knee BMI 31.0-31.9,adult BMI 32.0-32.9,adult Carpal tunnel syndrome on both sides Cholelithiasis NOS Chronic low back pain with left-sided sciatica (~12/28/20) MRI on 04/30/2021 reveals mild to moderate degenerative disc disease and arthritis with moderate bulging disc at L5-S1 with facet arthropathy worse on the left than the right. 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 Other Family history of allergic disorder Social History Social Hist
== END 2022-01-08 17:02 | disposition home or self-care (01) ==
PROVIDERS: Emergency Provider Nurse Practitioner Family; PCP Family Medicine
DX: M54.50 Low back pain, unspecified (principal); G89.29 Other chronic pain; E78.2 Mixed hyperlipidemia; Z90.79 Acquired absence of other genital organ(s)
CPT/HCPCS: 71101; 99213; G0463

== ENCOUNTER 2022-04-08 08:38 | Outpatient (CLI) | payer OTHER, SELFPAY ==
--- NOTE | 2022-04-08 11:30 | NEURO_ITS ---
Impression: # Complains of pain and numbness in right hand. # Right Carpal Tunnel Syndrome. 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 # Needle/EMG exam not requested. Nerve Conduction Studies Anti Sensory Summary Table Stim Site NR Peak (ms) P-T Amp (?V) Site1 Site2 Delta-P (ms) Dist (cm) Ilan (m/s) Left Median Anti Sensory (2-3nd Digit) Wrist 3.2 28.9 Wrist 2-3nd Digit 3.2 14.0 44 Wrist 3.3 29.7 Wrist 2-3nd Digit 3.2 14.0 44 Right Median Anti Sensory (2-3nd Digit) Wrist 5.7 35.3 Wrist 2-3nd Digit 5.7 14.0 25 Wrist 5.1 18.1 Wrist 2-3nd Digit 5.7 14.0 25 Left Radial Anti Sensory (Base 1st Digit) Wrist 2.1 12.3 Wrist Base 1st Digit 2.1 0.0 Right Radial Anti Sensory (Base 1st Digit) Wrist 2.2 19.7 Wrist Base 1st Digit 2.2 0.0 Left Ulnar Anti Sensory (5th Digit) Wrist 2.5 21.1 Wrist 5th Digit 2.5 14.0 56 Right Ulnar Anti Sensory (5th Digit) Wrist 2.5 30.8 Wrist 5th Digit 2.5 14.0 56 Motor Summary Table Stim Site NR Onset (ms) O-P Amp (mV) Site1 Site2 Delta-0 (ms) Dist (cm) Ilan (m/s) Left Median Motor (Abd Poll Brev) Wrist 3.6 1.5 Elbow Wrist 5.2 27.0 52 Elbow 8.8 1.3 Right Median Motor (Abd Poll Brev) Wrist 4.9 1.4 Elbow Wrist 5.6 26.0 46 Elbow 10.5 1.4 Left Ulnar Motor (Abd Dig Minimi) Wrist 2.3 6.9 A Elbow Wrist 5.4 28.0 52 A Elbow 7.7 5.4 B Elbow Wrist 4.1 24.0 59 B Elbow 6.4 5.7 Right Ulnar Motor (Abd Dig Minimi) Wrist 3.0 7.1 A Elbow Wrist 5.4 29.0 54 A Elbow 8.4 5.6 F Wave Studies NR F-Lat (ms) L-R F-Lat (ms) Left Median (Mrkrs) (Abd Poll Brev) 30.63 0.64 Right Median (Mrkrs) (Abd Poll Brev) 31.27 0.64 Left Ulnar (Mrkrs) (Abd Dig Min) 30.51 0.01 Right Ulnar (Mrkrs) (Abd Dig Min) 30.51 0.01 MTDD
== END 2022-04-08 08:39 | disposition home or self-care (01) ==
LOC: ANHNEURO 08:40
PROVIDERS: PCP Family Medicine; Visit Provider Plastic Surgery
DX: R20.2 Paresthesia of skin (principal); G56.01 Carpal tunnel syndrome, right upper limb
CPT/HCPCS: 95911

== ENCOUNTER → 2022-05-07 15:26 | Outpatient (CLI) | payer OTHER, SELFPAY ==
--- NOTE | ~2022-05-07 | XR_ITS ---
XR elbow RT min 3V DATE: 05/07/2022 15:41 INDICATION: Right elbow pain, unable to straighten elbow. TECHNIQUE: 4 views COMPARISON: None FINDINGS: There is prominent coronoid process spurring as well as spurring at the junction of the rad ial head and neck, consistent with prominent osteoarthritis. No recent fracture or dislocation or joint effusion. No periosteal reaction or bone destruction. IMPRESSION: Osteoarthritis Reviewed, dictated and finalized at location B. IMPRESSION: Osteoarthritis
== END ==
PROVIDERS: PCP Nurse Practitioner Family; Visit Provider Nurse Practitioner Family
DX: M19.021 Primary osteoarthritis, right elbow (principal)
CPT/HCPCS: 73080

== ENCOUNTER 2022-07-23 01:28 | Day surgery (SDC) | payer OTHER, SELFPAY ==
--- NOTE | 2022-07-21 08:02 | PC.NURSE ---
Report to the Outpatient Waiting Room, entrance under the green pavilion located off [facility], at time __0600 on date __07/21/22 . OR Time: __729 . Time changes happen often and if your time is changed the preop area will call you the afternoon before. - You and your visitor will be asked to self-screen and do not enter if you have any COVID symptoms. - We encourage only one visitor and NO visitors under age 16 are allowed at this time. Your visitor will receive communication by the phone number that is given day of service. - The patient visitor is requested to social distance or may leave the building when not with patient due to restrictions. - A mask is required within the hospital. Patients may have clear liquids (water, carbonated beverages, clear teas, apple juice) until 3 hours prior to surgery with a maximum of 20 ounces. - No food from midnight until time of surgery - Infants may have breast milk until 4 hours before surgery, formula 6 hours prior to surgery. - Children will be allowed to drink immediately following surgery. If applicable, please bring a bottle or sippy cup to assist with drinking. Juice, water, soda, and popsicles are readily available. For infants on formula, please bring formula the day of surgery. Pacifiers are allowed. Take the following medications with a SIP of water the morning of surgery: NONE Medications to discontinue per physician MULTI VITAMIN 3 DAYS PRE OP Date to take last dose_PT STATES__LAST DOSE WAS 07/20/22 Please no make-up, nail lao, hairspray, perfume, deodorant, or body powder the day of surgery. No jewelry (including any body piercings) or valuables the day of surgery, leave them at home. Please take a shower or bath the night before, or the morning of, surgery with an antibacterial soap. Wear comfortable, loose fitting clothing. Children are encouraged to wear pajamas. - Jewelry must be removed prior to entering the operating room. Rings and piercings that are not removed may be cut off. - The hospital will not accept responsibility for valuables. - Please leave all valuables, including medications, at home the day of surgery. If you are going home after surgery, a licensed cpr ambulance driver must drive you home. - NO public transportation without another adult. - We recommend that an adult stay with you for 24 hours following discharge. - We also recommend that you do not drive, make important decision, drink alcoholic beverages, or take any drugs that were not prescribed by your health care provider for at least 24 hours after your discharge time. For Pediatric surgeries, we recommend two adults accompany the child home. Follow any additional instructions given to you from your surgeon. If you or anyone in your household have experienced Covid symptoms in the past week, please notify your surgeon or the nurse liaison at the phone number below for possible testing. Telephone instructions given to _PATIENT and asked if any additional questions and then verbalized understanding. Patient advised to call surgeon office or pre surgery nurse liaison [phone] if any additional questions.
[2022-07-21 08:38] VITALS: BMI 31.4
[2022-07-23 06:32] VITALS: BP 123/74; PULSE 56; RESP 16; TEMP 36.2; O2SAT 100
[2022-07-23] MEDS: LACTATED RINGERS 1,000 ML 30 ML IV CONT ×2 (06:48→09:08)
--- NOTE | 2022-07-23 07:09 | WPDHPUPDATE1 ---
History and Physical Update Update Date/Time: 07/23/22 07:09 History and Physical has been reviewed, including an updated exam of the patient. There are NO changes in the patient's condition. Risks, benefits, and alternatives have been discussed and questions answered. Patient agrees to proceed with procedure.
--- NOTE | 2022-07-23 07:18 | WPDANESEPPF ---
Anes - Initial Pre Proc Eval Procedure: Operation Date: 07/23/22 07:30 Proposed Procedures p Right Open Carpal Tunnel Release, Right Ulnar Neuroplasty at Elbow - Geoffrey Luna MD s Release Right Middle Trigger Finger - Geoffrey Luna MD Date/Time: 07/23/22 07:18 Surgeon: Geoffrey Luna MD Pre Op Diagnosis: rt carpal & cubital tunnel syndrome, rt trigger fi Patient Data Age: 66 Gender: M Height: 1.68 m Weight: 89.7 kg Last Vital Signs Temp 97.1 F L 07/23/22 06:32 Pulse 56 L 07/23/22 06:32 Resp 16 07/23/22 06:32 BP 123/74 07/23/22 06:32 Pulse Ox 100 07/23/22 06:32 O2 Del Method Room Air 07/23/22 06:32 Allergies Allergy/AdvReac Type Severity Reaction Status Date / Time Penicillins Allergy Intermediate Hives Verified 07/23/22 06:41 Sulfa (Sulfonamide Allergy Intermediate Hives Verified 07/23/22 06:41 Antibiotics) Home Medications Medication Instructions Recorded Confirmed Type omeprazole magnesium 20 mg 20 mg PO DAILY 04/01/22 07/23/22 History tablet,delayed release (Prilosec OTC) multivitamin 1 tablet PO DAILY 07/21/22 07/23/22 History Patient hx anesthesia problems: none Family hx anesthesia problems: none Results Review: All pre-operative results and documents have been reviewed as part of the pre-operative evaluation. [facility] Past Medical History Medical History (Updated 05/07/22 @ 15:48 by Katelyn Gray NP) Abnormal fasting glucose (12/14/20) Glucose 107 with hemoglobin A1c 5.8 on 03/11/2022. glucose 120 on 12/15/2019. Abscessed tooth Actinic keratosis (12/14/20) Acute bilateral low back pain with left-sided sciatica (~12/28/20) Acute bronchitis (~10/21/21) Acute internal derangement of left knee Bilateral knee pain BMI 31.0-31.9,adult BMI 32.0-32.9,adult Carpal tunnel syndrome on both sides Vitamin B12 normal at 564 with folic acid 12.4 on 03/11/2022. Cholelithiasis NOS Chronic low back pain with left-sided sciatica (~12/28/20) MRI on 04/30/2021 reveals mild to moderate degenerative disc disease and arthritis with moderate bulging disc at L5-S1 with facet arthropathy worse on the left than the right. Chronic low back pain without sciatica Chronic right-sided thoracic back pain Colon cancer screening Decreased range of motion of right elbow Elevated fasting glucose Encounter for wellness examination in adult Erectile dysfunction after radical prostatectomy Testosterone 602 with free testosterone 65.8 on 03/11/2022. 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 LDL 160 on 12/14/2020. Motion sickness Right elbow pain Right hand pain Right knee pain Seasonal allergic rhinitis Thoracic radiculitis right-sided thoracic pain with epidural injection T10-T11 12/17/2021 Trigger finger, left middle finger Trigger finger, right middle finger Urinary bladder incontinence Surgical History Surgical History History of radical prostatectomy S/P left inguinal herniorrhaphy Family History Family History Mother Asthma Father No problems noted. Other Family history of allergic disorder Social History Social History Smoking status: Never smoker Alcohol intake: never Substance use: never Living arrangements: with family Gender identity (if verbalized by the patient): Male Spiritual care concerns: No Anes - Eval Final PreProcedure Day of Procedure 07/23/22 07:18 Patient weight: obese Heart: regular rate and rhythm Lungs: clear to auscultation Neurological: alert and oriented
[2022-07-23] MEDS: BACITRACIN OINTMENT 15 GM TUBE 1 APPLIC TOPICAL (08:01)
[2022-07-23 09:08] VITALS: BP 117/66; PULSE 69; RESP 10; O2SAT 99
--- NOTE | 2022-07-23 09:15 | SUR.PHASEII ---
@0908 [employer] OPERATOR SEJAL CABALLERO IN OUTPATIENT RECOVERY ROOM WITH PATIENT TO OBSERVE UNTIL PATIENT IS AROUSABLE. @0916 [employer] OPERATOR REMOVED AIRWAY AND OXYGEN, PATIENT NOW DROWSY BUT AROUSABLE
[2022-07-23 09:16] VITALS: O2SAT 96
--- NOTE | 2022-07-23 09:20 | W.PM.PROC2 ---
Procedure Note - Detailed Date of Procedure 07/23/22 Pre-op Diagnosis rt carpal & cubital tunnel syndrome, rt trigger fi Post-op Diagnosis Same Procedure Performed Right ulnar neuroplasty at the elbow with subcutaneous anterior transposition. Right open carpal tunnel release. Right middle trigger finger release Surgeon Geoffrey Luna MD Hide Tanner [facility] Anesthesia MAC Description of Procedure The A1 frannie the carpal tunnel and the cubital tunnel sites were all marked on the patient in the holding area with his consent. He was taken to the operating where he was placed supine on the operating table. He was given IV sedation. The right upper extremity was prepped and draped in usual fashion. A time-out was held and confirmed. The 3 sites were remarked for the actual incisions and locally infiltrated with 2% lidocaine with epinephrine. The extremity was exsanguinated and the tourniquet inflated to 250 mmHg. The incision was made at the right middle A1 frannie 1st. This was approximately 1.5 cm in length and blunt dissection revealed the flexor tendon sheath. The A1 frannie was incised and released throughout its length with scissor tips. The frannie seemed to be thin. There was synovitis and adhesions on the flexor tendon however. I was able to reach behind the tendons and pull it up out of the wound and passively flex and extend the finger. This seemed to indicate no residual triggering. Attention is turned to the proximal palm where the incision for carpal ligament release was made. Blunt dissection through the subcutaneous tissue revealed the palmar aponeurosis. This was divided with sharp and blunt dissection. The flexor retinaculum was identified and incised with a 15. Blade. Under 3 point retraction the ligament was divided distally and proximally to completely release it. There was no unusual anatomy noted. The 2 palmar wounds were then closed with interrupted 4-0 nylon sutures. The elbow was flexed and supported on folded towels. The incision was made over the course of the ulnar nerve. Bleeding points were electrocoagulated as we progressed. A very large triceps muscle was noted over the medial aspect of the olecranon. The ulnar nerve was identified anterior to that. This nerve was noted to be displaced from its normal groove in the area proximal to Valencia's ligament. It was redirected by Valencia ligament into an S curve before it entered the flexor muscle in the forearm. The Valencia ligament was carefully divided. There was no entrapment distal to that. An intermuscular septum proximally was partially divided allowing anterior movement of the nerve for transposition. A skin flap was elevated off the medial epicondyle. A partially preserved vascular pedicle was left intact with the nerve as it was elevated and transposed anteriorly. A fascial flap was designed off the medial epicondyle. This flap was looped over the nerve and fixed with 3-0 interrupted Monocryl mattress sutures at 3 locations. 2 of these were placed in the muscle fascia and 1 placed in the superficial fascia of the skin flap. The elbow was passively flexed and extended several times confirming that the nerve was not further kinked by this reconstruction and there did not appear to be any new compression points along the course. The tourniquet was released and the wound was irrigated and the skin wounds closed with intradermal 3-0 Monocryl at multiple sites followed by glue to the skin. All dressings were applied and the patient was then awakened and discharged from the operating room stable condition. Estimated Blood Loss 5 Drains No Packing No Pathology None sent Complications No immediate complications Condition Stable Disposition Same day
[2022-07-23 09:35] VITALS: BP 141/82; PULSE 86; RESP 12; O2SAT 96
[2022-07-23] MEDS: fentaNYL CITRATE INJ (*CRX) 100 MCG/2 ML VIAL 25 MCG IV PUSH ×6 (09:35→09:57)
[2022-07-23 10:05] VITALS: BP 137/85; PULSE 49; RESP 12; O2SAT 97
[2022-07-23 10:35] VITALS: BP 134/81; PULSE 55; RESP 16; O2SAT 96
[2022-07-23] MEDS: oxyCODONE HCL (*CRX) 5 MG TAB IR PO (10:56)
== END 2022-07-23 11:12 | disposition home or self-care (01) ==
PROVIDERS: PCP Family Medicine; Visit Provider Plastic Surgery
PROC: (CPT 64721; principal; 2022-07-23 07:30)
PROC: (CPT 26055; 2022-07-23 07:30)
DX: G56.01 Carpal tunnel syndrome, right upper limb (principal); M65.331 Trigger finger, right middle finger; G56.21 Lesion of ulnar nerve, right upper limb; E66.9 Obesity, unspecified; Z68.31 Body mass index [BMI] 31.0-31.9, adult
CPT/HCPCS: 64721; 26055; 64718; A9270; J1100; J2250; J2405; J2704; J3010; J7120

== ENCOUNTER 2023-05-20 14:50 | Emergency (ER) | payer OTHER, SELFPAY ==
--- NOTE | 2023-05-20 14:55 | ED.HEATRA ---
HPI - Head Injury General Chief complaint: Neck Pain/Injury Stated complaint: Pain in left side of neck Time Seen by Provider: 05/20/23 14:56 Source: patient Mode of arrival: ambulatory Limitations: no limitations History of Present Illness HPI Narrative: Gerard is a 67-year-old male patient presenting to the clinic today with complaints of left-sided neck pain x3 days. He reports no injury. Has localized sharp pain with burning sensation to the left mid neck. Does also report slight pain in the left shoulder. Was using a chain saw 3 days ago prior to having discomfort. Denies any numbness or tingling in his arm or hand. No pain with turning his head side to side. Related Data Home Medications Medication Instructions Recorded Confirmed Lactobacillus 1 cap PO DAILY 05/20/23 05/20/23 acidophilus-Bifidobac.animalis 2.5 billion cell capsule (Daily Probiotic) debpqomm-srckgueu-afm C 250 1 tablet PO DAILY 05/20/23 05/20/23 mg-herbal no.124 11.66 mg chewable tablet (Airborne Gummy) omeprazole 10 mg capsule,delayed 10 mg PO DAILY 05/20/23 05/20/23 release Allergies Allergy/AdvReac Type Severity Reaction Status Date / Time Penicillins Allergy Intermediate Hives Verified 05/20/23 15:03 Sulfa (Sulfonamide Allergy Intermediate Hives Verified 05/20/23 15:03 Antibiotics) Review of Systems Review of Systems: Pertinent positives per HPI. Patient denies any fever, chills, rash, headache, visual changes, dizziness, cough, runny nose, sore throat, shortness of breath, chest pain, palpitations, nausea, vomiting, diarrhea, constipation, abdominal pain, or any urinary issues. [facility] Past Medical History Medical History Abnormal fasting glucose (12/14/20) Glucose 107 with hemoglobin A1c 5.8 on 03/11/2022. glucose 120 on 12/15/2019. Abscessed tooth Actinic keratosis (12/14/20) Acute bilateral low back pain with left-sided sciatica (~12/28/20) Acute bronchitis (~10/21/21) Acute internal derangement of left knee Bilateral knee pain BMI 31.0-31.9,adult BMI 32.0-32.9,adult Carpal tunnel syndrome on both sides Vitamin B12 normal at 564 with folic acid 12.4 on 03/11/2022. Cholelithiasis NOS Chronic low back pain with left-sided sciatica (~12/28/20) MRI on 04/30/2021 reveals mild to moderate degenerative disc disease and arthritis with moderate bulging disc at L5-S1 with facet arthropathy worse on the left than the right. Chronic low back pain without sciatica Chronic right-sided thoracic back pain Colon cancer screening Patient declines any colon cancer screening Decreased range of motion of right elbow Encounter for wellness examination in adult Erectile dysfunction after radical prostatectomy Testosterone 602 with free testosterone 65.8 on 03/11/2022. 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 LDL 160 on 12/14/2020. Motion sickness Obesity (BMI 30.0-34.9) Oral abscess Right hand pain Right knee pain Seasonal allergic rhinitis Thoracic radiculitis right-sided thoracic pain with epidural injection T10-T11 12/17/2021 Trigger finger, left middle finger Trigger finger, right middle finger Urinary bladder incontinence Surgical History Surgical History History of radical prostatectomy S/P left inguinal herniorrhaphy Family History Family History Mother Asthma Father No problems noted. Other Family history of allergic disorder Social History Social History Smoking
[2023-05-20 15:00] VITALS: BP 133/71; PULSE 76; RESP 18; TEMP 36.7; O2SAT 98
== END 2023-05-20 15:15 | disposition home or self-care (01) ==
PROVIDERS: Emergency Provider Nurse Practitioner Family; PCP Family Medicine
DX: M54.2 Cervicalgia (principal); E78.2 Mixed hyperlipidemia; E66.9 Obesity, unspecified; Z68.30 Body mass index [BMI] 30.0-30.9, adult; Z90.79 Acquired absence of other genital organ(s)
CPT/HCPCS: 99213; G0463

== ENCOUNTER 2023-06-23 08:01 | Outpatient (CLI) | payer OTHER, SELFPAY ==
--- NOTE | ~2023-06-23 | MR_ITS ---
EXAMINATION: MR knee RT wo con DATE: 06/23/2023 09:24 INDICATION: Right knee pain TECHNIQUE: Magnetic resonance imaging (MRI) of the right knee was performed without intravenous contr ast. Sequences included coronal PD-weighted FSE, coronal PD-weighted FS FSE, sagittal T2-weighted FS E, sagittal PD-weighted FS FSE and axial PD weighted fat saturated FSE. COMPARISON: None. FINDINGS: Medial compartment: Complex tear of the body and posterior horn of the medial meniscus. Relatively diffuse partial thickn ess cartilage loss with smooth chondral surface along the medial tibial plateau. Partial-thickness ch ondral ulceration and fissuring along the weightbearing medial femoral condyle which appears deep wit h small central subchondral osteophyte and small foci of subarticular edema-like signal change at the central weightbearing medial femoral condyle. Lateral compartment: Lateral meniscus is normal. Articular cartilage is normal. Patellofemoral compartment: Shallow chondral fissuring along the lateral patellar facet with deeper fissuring with minimal underl cydney edema-like signal change at the apical ridge. Additional focus of deep chondral fissuring with m inimal underlying cortical irregularity at the inferior aspect of the medial trochlea. Ligaments and tendons: Anterior and posterior cruciate ligaments are normal. The medial collateral ligament and fibular silvia ateral ligament complex are normal. Minimal tendinopathy at the distal quadriceps and proximal patell ar tendons. The visualized medial and lateral hamstring tendons as well as the iliotibial band are no rmal. Fluid: Physiologic amount of fluid in the joint space. No loose osteochondral bodies identified. Osseous/other: Bone alignment is normal. No fracture or pathologic marrow replacing process. IMPRESSION: 1. Complex medial meniscal tear. 2. 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 Reviewed, dictated and finalized at location A. IMPRESSION: 1. Complex medial meniscal tear. 2. 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
== END 2023-06-23 08:02 | disposition home or self-care (01) ==
PROVIDERS: PCP Family Medicine; Visit Provider Orthopaedic Surgery
DX: M17.11 Unilateral primary osteoarthritis, right knee (principal); S83.231A Complex tear of medial meniscus, current injury, right knee, initial encounter; X58.XXXA Exposure to other specified factors, initial encounter
CPT/HCPCS: 73721

== ENCOUNTER 2023-07-14 01:23 | Day surgery (SDC) | payer OTHER, SELFPAY ==
[2023-07-07 15:07] VITALS: BMI 30.6
--- NOTE | 2023-07-07 15:18 | PC.NURSE ---
Report to the Outpatient Waiting Room, entrance under the green pavilion located off [facility], at time __6:00AM on date _07/14/23 . Planned Procedure Time: __7:30AM . Time changes happen often and if your time is changed the preop area will call you the afternoon before. - You and your visitor will be asked to self-screen and do not enter if you have any COVID symptoms. - A mask is optional within the hospital at this time. Patients may have clear liquids (water, carbonated beverages, clear teas, apple juice) until 3 hours prior to surgery with a maximum of 20 ounces. - No food from midnight until time of surgery. Take the following medications with a SIP of water the morning of surgery: ____NONE DO NOT STOP ANY OF YOUR OTHER PRESCRIPTION MEDICATIONS PRIOR TO SURGERY ?EXCEPT THE FOLLOWING Medications to discontinue per physician ____HOLD ALL VITAMINS/SUPPLEMENTS 3 DAYS PRE-OP PER ANESTHESIA Date to take last dose____07/10/23 Please no make-up, nail pashto, hairspray, perfume, deodorant, or body powder the day of surgery. No jewelry (including any body piercings) or valuables the day of surgery, leave them at home. Please take a shower or bath the night before, or the morning of, surgery with an antibacterial soap. Wear comfortable, loose fitting clothing. - Jewelry must be removed prior to entering the operating room. Rings and piercings that are not removed may be cut off. - The hospital will not accept responsibility for valuables. - Please leave all valuables, including medications, at home the day of surgery. If you are going home after surgery, a licensed school bus driver/teacher assistant must drive you home. - NO public transportation without another adult if you receive anesthesia. - We recommend that an adult stay with you for 24 hours following discharge. - We also recommend that you do not drive, make important decision, drink alcoholic beverages, or take any drugs that were not prescribed by your health care provider for at least 24 hours after your discharge time. Follow any additional instructions given to you from your surgeon. If you or anyone in your household have experienced Covid symptoms in the past week, please notify your surgeon or the nurse liaison at the phone number below for possible testing. Telephone instructions given to __PATIENT and asked if any additional questions and then verbalized understanding. Patient advised to call surgeon office or pre surgery nurse liaison [phone] if any additional questions.
[2023-07-14] VITALS (11 sets, daily range): BP systolic 117–136; BP diastolic 60–92; PULSE 52–87; RESP 13–20; TEMP 36.6–37.1; O2SAT 94–100
--- NOTE | 2023-07-14 06:28 | WPDANESEPPF ---
Anes - Initial Pre Proc Eval Procedure: Operation Date: 07/14/23 07:30 Proposed Procedures p Right Knee Arthroscopy with Meniscectomy - Gabe Mathew MD Date/Time: 07/14/23 06:28 Surgeon: Gabe Mathew MD Pre Op Diagnosis: right knee meniscal tear Patient Data Age: 67 Gender: M Height: 1.68 m Weight: 86 kg Allergies Allergy/AdvReac Type Severity Reaction Status Date / Time Penicillins Allergy Intermediate Hives Verified 07/07/23 15:05 Sulfa (Sulfonamide Allergy Intermediate Hives Verified 07/07/23 15:05 Antibiotics) Home Medications Medication Instructions Recorded Confirmed Type Lactobacillus 1 cap PO DAILY 05/20/23 07/07/23 History acidophilus-Bifidobac.animalis 2.5 billion cell capsule (Daily Probiotic) uncjizko-shjeuzsd-qzi C 250 1 tablet PO DAILY 05/20/23 07/07/23 History mg-herbal no.124 11.66 mg chewable tablet (Airborne Gummy) omeprazole magnesium 20 mg 20 mg PO DAILY 07/07/23 07/07/23 History tablet,delayed release (Prilosec OTC) Patient hx anesthesia problems: none Family hx anesthesia problems: none Results Review: All pre-operative results and documents have been reviewed as part of the pre-operative evaluation. [facility] Past Medical History Medical History Abnormal fasting glucose (12/14/20) Glucose 107 with hemoglobin A1c 5.8 on 03/11/2022. glucose 120 on 12/15/2019. Abscessed tooth Actinic keratosis (12/14/20) Acute bilateral low back pain with left-sided sciatica (~12/28/20) Acute bronchitis (~10/21/21) Acute internal derangement of left knee Arthritis of right elbow Bilateral knee pain BMI 31.0-31.9,adult BMI 32.0-32.9,adult Carpal tunnel syndrome on both sides Vitamin B12 normal at 564 with folic acid 12.4 on 03/11/2022. Cholelithiasis NOS Chronic low back pain with left-sided sciatica (~12/28/20) MRI on 04/30/2021 reveals mild to moderate degenerative disc disease and arthritis with moderate bulging disc at L5-S1 with facet arthropathy worse on the left than the right. Chronic low back pain without sciatica Chronic right-sided thoracic back pain Colon cancer screening Patient declines any colon cancer screening Decreased range of motion of right elbow Encounter for wellness examination in adult Erectile dysfunction after radical prostatectomy Testosterone 602 with free testosterone 65.8 on 03/11/2022. 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 LDL 160 on 12/14/2020. Motion sickness Obesity (BMI 30.0-34.9) Oral abscess Right hand pain Right knee pain complex medial meniscus tear with chondromalacia of the patella on MRI 06/23/2023. Seasonal allergic rhinitis Tear of medial meniscus of right knee Thoracic radiculitis right-sided thoracic pain with epidural injection T10-T11 12/17/2021 Trigger finger, left middle finger Trigger finger, right middle finger Urinary bladder incontinence Surgical History Surgical History History of radical prostatectomy S/P left inguinal herniorrhaphy Family History Family History Mother Asthma Father No problems noted. Other Family history of allergic disorder Social History Social History Smoking status: Never smoker Alcohol intake: never Substance use: never Substance use type: does not use Lack of Transportation: No Lack of Food: Never True Current Housing: I Have Housing Concerned About Future Housing: No Difficulty Paying Gas/Electric Bills: No Difficulty P
[2023-07-14] MEDS: ACETAMINOPHEN 500 MG TABLET 1000 MG PO (06:36)
[2023-07-14] MEDS: LACTATED RINGERS 1,000 ML 30 ML IV CONT ×2 (06:40→08:21)
[2023-07-14] MEDS: KETOROLAC 15 MG/ML VIAL (*BKC) IV PUSH (07:03)
--- NOTE | 2023-07-14 07:20 | WPDHPUPDATE1 ---
History and Physical Update Update Date/Time: 07/14/23 07:20 History and Physical has been reviewed, including an updated exam of the patient. There are NO changes in the patient's condition. Risks, benefits, and alternatives have been discussed and questions answered. Patient agrees to proceed with procedure.
[2023-07-14] MEDS: ceFAZolin 2 GM/D5W 50 ML 2 GM/50 ML BAG IVPB (07:27)
[2023-07-14] MEDS: LIDOCAINE HCL 1% LOCAL INJ 20 ML VIAL INFILTRATE (07:51)
--- NOTE | 2023-07-14 08:14 | W.PM.PROC2 ---
Procedure Note - Detailed Date of Procedure 07/14/23 Pre-op Diagnosis right knee meniscal tear Post-op Diagnosis Same Procedure Performed Right knee arthroscopy, partial medial meniscectomy Surgeon Gabe Mathew MD Anesthesia General Description of Procedure The patient was identified and proper site identified and he was taken to the operating room, transferred to the OR table placing him supine taking care to pad the torso and extremities. After general anesthetic induction and intubation, a nonsterile tourniquet was placed high on the right thigh but was not inflated. The right lower extremity was positioned, prepped and draped in usual sterile fashion. 10 cc of 1% lidocaine was injected into the subcutaneous tissue in the area of the portals at start of the procedure, and an additional 10 at the end. The portals were established and the arthroscopy was carried out. Articular cartilage in the lateral compartment and meniscal cartilage from both fairly good condition with no significant fraying. Anterior posterior cruciate ligaments were in continuity. Pouch and gutters were clear. Along the medial femoral condyle there was a full of synovium which was hyperemic. This was addressed with the ArthroCare Wand. In the medial compartment there was extensive grade 3 changes the medial femoral condyle and medial tibial plateau as well as complex tearing of the medial meniscus posterior horn up to the mid body. The loose fibrillated cartilage of the joint surface was gently debrided. The meniscus was contoured back to stable rim with basket forceps and shaver. There is also noted to be grade 2 and three changes in the anterior compartment. Arthrocare Wand was used for intra-articular hemostasis. The knee was flushed with a copious amount of arthroscopic fluid and equipment was removed. Portals were closed with three O nylon suture and a sterile dressing was applied. He tolerated the procedure well, was awakened, extubated and taken to recovery area in stable condition. There were no known intraoperative complications. Estimated blood loss was negligible; he received perioperative antibiotics. Estimated Blood Loss 10 Tourniquet Time 0 Drains No Packing No Pathology None sent Complications No immediate complications Condition Stable Disposition PACU [facility] Billing Surgery - Charge Forward: Surgery Billing ([id number])
[2023-07-14] MEDS: fentaNYL CITRATE INJ (*CRX) 100 MCG/2 ML VIAL 25 MCG IV PUSH ×6 (08:55→10:55)
[2023-07-14] MEDS: oxyCODONE HCL (*CRX) 5 MG TAB IR PO (10:20)
== END 2023-07-14 11:40 | disposition home or self-care (01) ==
PROVIDERS: PCP Family Medicine; Visit Provider Orthopaedic Surgery
PROC: (CPT 29870; principal; 2023-07-14 07:30)
DX: S83.241A Other tear of medial meniscus, current injury, right knee, initial encounter (principal); E78.2 Mixed hyperlipidemia; E66.9 Obesity, unspecified; Z68.31 Body mass index [BMI] 31.0-31.9, adult; X58.XXXA Exposure to other specified factors, initial encounter
CPT/HCPCS: 29881; A9270; J0690; J1100; J1885; J2250; J2405; J2704; J3010; J7120

== ENCOUNTER 2023-08-22 08:03 | Emergency (ER) | payer OTHER, SELFPAY ==
[2023-08-22 08:08] VITALS: BP 132/62; PULSE 57; RESP 14; TEMP 36.1; O2SAT 98
--- NOTE | 2023-08-22 08:13 | ED.EAR ---
HPI - Ear Problem General Chief complaint: Ear Stated complaint: ears Time Seen by Provider: 08/22/23 08:26 Source: patient and RN notes reviewed Mode of arrival: ambulatory Limitations: no limitations History of Present Illness HPI Narrative: 68-year-old male presents with concern for bilateral ear pain, worse on the left for 5 days. Reports his primary doctor gave him a Z-Reuben after a phone consultation for the ear pain. Reports he finished that but the pain persists. He reports that also hurts on his right side open his mouth. He denies any fever. He denies any redness, swelling, warmth surrounding the ear. He denies any drainage from the ear. MD Complaint: ear pain Related Data Home Medications Medication Instructions Recorded Confirmed omeprazole magnesium 20 mg 20 mg PO DAILY 07/07/23 08/22/23 tablet,delayed release (Prilosec OTC) Allergies Allergy/AdvReac Type Severity Reaction Status Date / Time Penicillins Allergy Intermediate Hives Verified 08/22/23 08:15 Sulfa (Sulfonamide Allergy Intermediate Hives Verified 08/22/23 08:15 Antibiotics) Review of Systems Review of Systems: CONSTITUTIONAL: Denies malaise, chills, sweats, or fever. EYES: Denies visual changes, redness, or discharge. ENT: Denies rhinorrhea, congestion, sinus pain, and sore throat. Reports bilateral ear pain, worse on the right, pain when he opens his mouth on the right side CARDIOVASCULAR: Denies chest pain, palpitations, or edema. RESPIRATORY: Denies cough. Denies dyspnea. GASTROINTESTINAL: Denies abdominal pain, nausea, vomiting, diarrhea SKIN: Denies rash or itching. MUSCULOSKELETAL: Denies myalgia. NEUROLOGIC: Denies headache. All systems reviewed & are unremarkable except as noted in HPI and below [facility] Past Medical History Medical History (Updated 08/22/23 @ 08:34 by Mame Hahn NP) Abnormal fasting glucose (12/14/20) Glucose 107 with hemoglobin A1c 5.8 on 03/11/2022. glucose 120 on 12/15/2019. Abscessed tooth Actinic keratosis (12/14/20) Acute bilateral low back pain with left-sided sciatica (~12/28/20) Acute bronchitis (~10/21/21) Acute internal derangement of left knee Arthritis of right elbow Bilateral knee pain BMI 31.0-31.9,adult BMI 32.0-32.9,adult Carpal tunnel syndrome on both sides Vitamin B12 normal at 564 with folic acid 12.4 on 03/11/2022. Cholelithiasis NOS Chronic low back pain with left-sided sciatica (~12/28/20) MRI on 04/30/2021 reveals mild to moderate degenerative disc disease and arthritis with moderate bulging disc at L5-S1 with facet arthropathy worse on the left than the right. Chronic low back pain without sciatica Chronic right-sided thoracic back pain Colon cancer screening Patient declines any colon cancer screening Decreased range of motion of right elbow Encounter for wellness examination in adult Erectile dysfunction after radical prostatectomy Testosterone 602 with free testosterone 65.8 on 03/11/2022. 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 LDL 160 on 12/14/2020. Motion sickness Obesity (BMI 30.0-34.9) Oral abscess Otitis externa Otitis media Right hand pain Right knee pain complex medial meniscus tear with chondromalacia of the patella on MRI 06/23/2023. Seasonal allergic rhinitis Tear of medial meniscus of right knee Thoracic radiculitis right-sided thoracic pain with epidural injection T10-T11 12/17/2021 Trigger finger, left middle finger Trigger finger, right middle finger Urinary bladder incontinence Surgical History Surgical History History of arthroscopy of right knee Right knee medial meniscectomy July 14, 2023 History of radical p
[2023-08-22 08:24] VITALS: BP 132/62; PULSE 57; RESP 14; TEMP 36.1; O2SAT 98
== END 2023-08-22 08:36 | disposition home or self-care (01) ==
PROVIDERS: Emergency Provider Nurse Practitioner; PCP Family Medicine
DX: H69.82 Other specified disorders of Eustachian tube, left ear (principal); K08.89 Other specified disorders of teeth and supporting structures; M19.021 Primary osteoarthritis, right elbow; E78.2 Mixed hyperlipidemia; E66.9 Obesity, unspecified; Z68.30 Body mass index [BMI] 30.0-30.9, adult
CPT/HCPCS: 99213; G0463

== ENCOUNTER 2023-09-01 14:45 | Emergency (ER) | payer OTHER, SELFPAY ==
--- NOTE | 2023-09-01 14:53 | ED.ABDPAIN ---
HPI - Abdominal Pain General Chief Complaint: Abdominal Pain Stated Complaint: ABD PAIN Source: patient and RN notes reviewed Mode of arrival: ambulatory Limitations: no limitations History of Present Illness HPI narrative: 68 y/o male presented for c/o right lower abdominal pain x2 days; worsening today while walking. States pain started the day after he lifted and reached over a cart, felt a tearing sensation which did not return until the following day. Reports nausea and gas, and continues to feel bloated. Has not taken anything for pain. LBM last night. Last ate noon today. Currently denies nausea, fever. Hx left inguinal hernia repair GERD and prostatectomy. Related Data Home Medications Medication Instructions Recorded Confirmed omeprazole magnesium 20 mg 20 mg PO DAILY 07/07/23 08/22/23 tablet,delayed release (Prilosec OTC) Allergies Allergy/AdvReac Type Severity Reaction Status Date / Time Penicillins Allergy Intermediate Hives Verified 08/22/23 08:15 Sulfa (Sulfonamide Allergy Intermediate Hives Verified 08/22/23 08:15 Antibiotics) Review of Systems Review of Systems: CONSTITUTIONAL: Denies body aches, fever, chills ENT: Denies rhinorrhea, congestion CARDIOVASCULAR: Denies chest pain, palpitations, or edema. RESPIRATORY: Denies cough or dyspnea. GASTROINTESTINAL: Endorses abdominal pain Denies vomiting, diarrhea, hematochezia, melena GENITOURINARY: Denies dysuria, hematuria, or CVA tenderness. SKIN: Denies rash, itching, or wounds. MUSCULOSKELETAL: Denies back pain, joint pain, or myalgia. NEUROLOGIC: Denies headache, numbness, tingling, or weakness. All systems reviewed & are unremarkable except as noted in HPI and below [facility] Past Medical History Medical History Abnormal fasting glucose (12/14/20) Glucose 107 with hemoglobin A1c 5.8 on 03/11/2022. glucose 120 on 12/15/2019. Abscessed tooth Actinic keratosis (12/14/20) Acute bilateral low back pain with left-sided sciatica (~12/28/20) Acute bronchitis (~10/21/21) Acute internal derangement of left knee Arthritis of right elbow Bilateral knee pain BMI 31.0-31.9,adult BMI 32.0-32.9,adult Carpal tunnel syndrome on both sides Vitamin B12 normal at 564 with folic acid 12.4 on 03/11/2022. Cholelithiasis NOS Chronic low back pain with left-sided sciatica (~12/28/20) MRI on 04/30/2021 reveals mild to moderate degenerative disc disease and arthritis with moderate bulging disc at L5-S1 with facet arthropathy worse on the left than the right. Chronic low back pain without sciatica Chronic right-sided thoracic back pain Colon cancer screening Patient declines any colon cancer screening Decreased range of motion of right elbow Encounter for wellness examination in adult Erectile dysfunction after radical prostatectomy Testosterone 602 with free testosterone 65.8 on 03/11/2022. 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 LDL 160 on 12/14/2020. Motion sickness Obesity (BMI 30.0-34.9) Oral abscess Otitis externa Otitis media Right hand pain Right knee pain complex medial meniscus tear with chondromalacia of the patella on MRI 06/23/2023. Seasonal allergic rhinitis Tear of medial meniscus of right knee Thoracic radiculitis right-sided thoracic pain with epidural injection T10-T11 12/17/2021 Trigger finger, left middle finger Trigger finger, right middle finger Urinary bladder incontinence Surgical History Surgical History History of arthroscopy of right knee Right knee medial meniscectomy July 14, 2023 History of radical prostatectomy S/P left inguinal hernio
[2023-09-01 14:54] VITALS: BP 136/69; PULSE 67; RESP 16; TEMP 36.2; O2SAT 100
== END 2023-09-01 15:15 | disposition short-term general hospital (02) ==
PROVIDERS: Emergency Provider Nurse Practitioner Family; PCP Family Medicine
DX: R10.31 Right lower quadrant pain (principal); E78.2 Mixed hyperlipidemia
CPT/HCPCS: 99215; G0463

== ENCOUNTER 2023-09-01 15:41 | Emergency (ER) | payer OTHER, SELFPAY ==
--- NOTE | ~2023-09-01 | CT_ITS ---
EXAMINATION: CT abdomen pelvis w con DATE: 09/01/2023 16:00 INDICATION: Right lower quadrant abdominal pain TECHNIQUE: Computed tomography (CT) of the abdomen and pelvis was performed with 100 cc Omnipaque 350 intravenous contrast. The dose-length product was 938.05 mGy-cm. Automated exposure control and iter ative reconstruction technique were employed. COMPARISON: CT dated 09/05/2018. FINDINGS: Lung bases unremarkable. Heart size normal. No significant pleural or pericardial effusion. Gallstones. Appendix within normal limits. Mild mesenteric lymphadenopathy, nonspecific. Fat-contain ing right inguinal hernia. The liver, spleen, pancreas, adrenal glands are unremarkable. There is an accessory splenule. There a re small subcentimeter hypodensities of the kidneys, most likely benign. No hydronephrosis. No signif icant vascular abnormality. There is lower thoracic and lumbar spondylosis. IMPRESSION: 1. No acute abdominal abnormality identified. 2: Cholelithiasis. 3: Mild mesenteric lymphadenopathy, likely reactive. There are a few scattered groundglass nodules in the mesentery possibly representing areas of fat necrosis. Reviewed, dictated and finalized at location L. [facility] RECESS[facility] VAT IMPRESSION: 1. No acute abdominal abnormality identified. 2: Cholelithiasis. 3: Mild mesenteric lymphadenopathy, likely reactive. There are a few scattered groundglass nodules in the mesentery possibly representing areas of fat necrosi s.
[2023-09-01 15:43] VITALS: BP 140/68; PULSE 67; RESP 16; TEMP 37.1; O2SAT 100
--- NOTE | 2023-09-01 15:46 | ED.ABDPAIN ---
HPI - Abdominal Pain General Chief Complaint: Abdominal Pain Stated Complaint: ABD PAIN History of Present Illness HPI narrative: Pt was moving a gun safe 3 days ago. Pt says he developed pain in rlq 2 days ago and thought maybe he straqined something the day before. Pt says the pain in RLQ persisted but improved somewhat earlier today so he tried to go to work but his pain got much worse and he called 911. Pt denies fever or urinary symptoms. Related Data Home Medications Medication Instructions Recorded Confirmed omeprazole magnesium 20 mg 20 mg PO DAILY 07/07/23 08/22/23 tablet,delayed release (Prilosec OTC) Allergies Allergy/AdvReac Type Severity Reaction Status Date / Time Penicillins Allergy Intermediate Hives Verified 08/22/23 08:15 Sulfa (Sulfonamide Allergy Intermediate Hives Verified 08/22/23 08:15 Antibiotics) Review of Systems Review of Systems: All systems reviewed & are unremarkable except as noted in HPI and below [facility] Past Medical History Medical History Abnormal fasting glucose (12/14/20) Glucose 107 with hemoglobin A1c 5.8 on 03/11/2022. glucose 120 on 12/15/2019. Abscessed tooth Actinic keratosis (12/14/20) Acute bilateral low back pain with left-sided sciatica (~12/28/20) Acute bronchitis (~10/21/21) Acute internal derangement of left knee Arthritis of right elbow Bilateral knee pain BMI 31.0-31.9,adult BMI 32.0-32.9,adult Carpal tunnel syndrome on both sides Vitamin B12 normal at 564 with folic acid 12.4 on 03/11/2022. Cholelithiasis NOS Chronic low back pain with left-sided sciatica (~12/28/20) MRI on 04/30/2021 reveals mild to moderate degenerative disc disease and arthritis with moderate bulging disc at L5-S1 with facet arthropathy worse on the left than the right. Chronic low back pain without sciatica Chronic right-sided thoracic back pain Colon cancer screening Patient declines any colon cancer screening Decreased range of motion of right elbow Encounter for wellness examination in adult Erectile dysfunction after radical prostatectomy Testosterone 602 with free testosterone 65.8 on 03/11/2022. 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 LDL 160 on 12/14/2020. Motion sickness Obesity (BMI 30.0-34.9) Oral abscess Otitis externa Otitis media Right hand pain Right knee pain complex medial meniscus tear with chondromalacia of the patella on MRI 06/23/2023. Seasonal allergic rhinitis Tear of medial meniscus of right knee Thoracic radiculitis right-sided thoracic pain with epidural injection T10-T11 12/17/2021 Trigger finger, left middle finger Trigger finger, right middle finger Urinary bladder incontinence Surgical History Surgical History History of arthroscopy of right knee Right knee medial meniscectomy July 14, 2023 History of radical prostatectomy S/P left inguinal herniorrhaphy Family History Family History Mother Asthma Father No problems noted. Other Family history of allergic disorder Social History Social History Smoking status: Never smoker Alcohol intake: never Substance use: never Substance use type: does not use Lack of Transportation: No Lack of Food: Never True Current Housing: I Have Housing Concerned About Future Housing: No Difficulty Paying Gas/Electric Bills: No Difficulty Paying for Meds: No Currently Unemployed: No Education: Bachelor's Degree Difficulty w/ Childcare or Family Care: No Living
[2023-09-01 15:54] LABS: Estimated CRCL calculation 58 ml/min; Estimated Glomerular Filt Rate > 60
[2023-09-01 16:00] VITALS: BP 133/73; PULSE 69; RESP 16; O2SAT 98
[2023-09-01] MEDS: MORPHINE SULFATE (*CRX) 4 MG/ML INJ IV PUSH (16:03)
[2023-09-01] MEDS: ONDANSETRON INJ 4 MG/2 ML VIAL IV PUSH (16:04)
[2023-09-01 16:11] LABS: Basophils Percent Auto 0.4 % (0.2-1.2); Eosinophils Absolute Auto 0.2 K/mm3 (0-0.3); Eosinophils Percent Auto 2.8 % (0-4.4); Hematocrit 46.3 % (42.0-52.0); Hemoglobin 15.1 g/dL (14.0-18.0); Immature Granulocyte Absolute 0.07 K/mm3 (0.00-0.031); Immature Granulocyte Percent A 0.9 % (0-0.5); Lymphocytes Absolute Auto 2.46 K/mm3 (0.9-3.2); Lymphocytes Percent Auto 30.1 % (18.3-44.2); Mean Corpuscular HGB Conc 32.6 g/dl (32-36); Mean Corpuscular Volume 82.8 fl (80-100); Mean Platelet Volume 9.5 fl (7.4-10.4); Monocytes Absolute Auto 0.8 K/mm3 (0.1-0.6); Monocytes Percent Auto 9.8 % (2.6-8.5); Neutrophils Absolute Auto 4.6 K/mm3 (1.3-6.7); Platelet Count Result 231 k/mm3 (150-375); Red Blood Count 5.59 M/mm3 (4.6-6.20); Red Cell Distribution Width 13.9 % (11.5-14.5); White Blood Count 8.2 K/mm3 (4.5-10.0)
[2023-09-01 16:21] LABS: Alanine Aminotransferase 31 U/L (6-50); Alkaline Phosphatase 61 U/L (38-126); Anion Gap 7 mmol/L (8-16); Aspartate Amino Transferase 29 U/L (17-59); Bilirubin,Total 0.5 mg/dL (0.2-1.3); Blood Urea Nitrogen 17 mg/dL (9-20); Calcium 8.7 mg/dL (8.4-10.2); Carbon Dioxide 27 mmol/L (22-30); Chloride 102 mmol/L (98-107); Estimated CRCL calculation 58 ml/min; Estimated Glomerular Filt Rate > 60; Glucose 106 mg/dL (65-110); Potassium 4.1 mmol/L (3.4-5.0); Sodium 136 mmol/L (137-145)
[2023-09-01 16:24] LABS: INR 1.1; Prothrombin Time 14.3 Seconds (11.1-14.7)
[2023-09-01 16:25] LABS: Partial Thromboplastin Time 31.7 SECONDS (22.3-36.8)
[2023-09-01 16:33] VITALS: TEMP 37.1
[2023-09-01] MEDS: MORPHINE SULFATE (*CRX) 2 MG/ML INJ IV PUSH (16:56)
[2023-09-01 17:00] VITALS: BP 128/72; PULSE 68; RESP 16; O2SAT 100
[2023-09-01 17:27] VITALS: TEMP 36.7
== END 2023-09-01 17:29 | disposition home or self-care (01) ==
PROVIDERS: Emergency Provider Emergency Medicine; PCP Family Medicine
DX: I88.0 Nonspecific mesenteric lymphadenitis (principal); M19.90 Unspecified osteoarthritis, unspecified site
CPT/HCPCS: 74177; 80053; 85025; 85610; 85730; 96374; 96375; 96376; 99284; J2270; J2405; Q9967

== ENCOUNTER 2023-09-10 19:38 | Emergency (ER) | payer OTHER, SELFPAY ==
[2023-09-10 19:44] VITALS: BP 130/72; PULSE 65; RESP 20; TEMP 36.5; O2SAT 97
--- NOTE | 2023-09-10 19:44 | ED.GENADULT ---
HPI - General Adult General Chief complaint: Ear Stated complaint: ears/neck swelling Source: patient and RN notes reviewed Mode of arrival: ambulatory Limitations: no limitations History of Present Illness HPI narrative: Patient is a 68-year-old male who presents to the [facility] with complaints of right ear pain that radiates into his right jaw all. Patient states that this has been ongoing for couple weeks. He states that he was seen here on 09/01/2023 and treated for dental infection. Patient states that he was treated with clindamycin. Patient states that his symptoms have been ongoing and have not gotten any better. He states that he also has been on recent steroids which also did not help. He denies recent fever. Denies trouble swallowing. No facial swelling. Denies trismus. Related Data Allergies Allergy/AdvReac Type Severity Reaction Status Date / Time Penicillins Allergy Intermediate Hives Verified 09/10/23 19:53 Sulfa (Sulfonamide Allergy Intermediate Hives Verified 09/10/23 19:53 Antibiotics) Review of Systems Review of Systems: CONSTITUTIONAL: Denies fever, chills, or sweats. EYES: Denies visual changes, redness, or discharge. ENT: Reports otalgia but denies sore throat CARDIOVASCULAR: Denies chest pain, palpitations, or edema. RESPIRATORY: Denies cough or dyspnea. GASTROINTESTINAL: Denies abdominal pain, nausea, vomiting, or diarrhea. GENITOURINARY: Denies dysuria or hematuria. SKIN: Denies rash or itching. MUSCULOSKELETAL: Denies back pain, joint pain, or myalgia. NEUROLOGIC: Denies headache, numbness, or weakness. Pertinent positives per HPI. [facility] Past Medical History Medical History Abnormal fasting glucose (12/14/20) Glucose 107 with hemoglobin A1c 5.8 on 03/11/2022. glucose 120 on 12/15/2019. Abscessed tooth Actinic keratosis (12/14/20) Acute bilateral low back pain with left-sided sciatica (~12/28/20) Acute bronchitis (~10/21/21) Acute internal derangement of left knee Arthritis of right elbow Bilateral knee pain BMI 31.0-31.9,adult BMI 32.0-32.9,adult Carpal tunnel syndrome on both sides Vitamin B12 normal at 564 with folic acid 12.4 on 03/11/2022. Cholelithiasis NOS Chronic low back pain with left-sided sciatica (~12/28/20) MRI on 04/30/2021 reveals mild to moderate degenerative disc disease and arthritis with moderate bulging disc at L5-S1 with facet arthropathy worse on the left than the right. Chronic low back pain without sciatica Chronic right-sided thoracic back pain Colon cancer screening Patient declines any colon cancer screening Decreased range of motion of right elbow Encounter for wellness examination in adult Erectile dysfunction after radical prostatectomy Testosterone 602 with free testosterone 65.8 on 03/11/2022. 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 LDL 160 on 12/14/2020. Motion sickness Obesity (BMI 30.0-34.9) Oral abscess Otitis externa Otitis media Right hand pain Right knee pain complex medial meniscus tear with chondromalacia of the patella on MRI 06/23/2023. Seasonal allergic rhinitis Tear of medial meniscus of right knee Thoracic radiculitis right-sided thoracic pain with epidural injection T10-T11 12/17/2021 Trigger finger, left middle finger Trigger finger, right middle finger Urinary bladder incontinence Surgical History Surgical History History of arthroscopy of right knee Right knee medial meniscectomy July 14, 2023 History of radical prostatectomy S/P left inguinal herniorrhaphy Family History Family History (Reviewed 09/10/23 @ 19:45 by Chasity Ruiz
[2023-09-10 19:53] VITALS: BP 130/72; PULSE 65; RESP 20; TEMP 36.5; O2SAT 97
== END 2023-09-10 20:04 | disposition home or self-care (01) ==
PROVIDERS: Emergency Provider Nurse Practitioner; PCP Family Medicine
DX: H66.91 Otitis media, unspecified, right ear (principal); M19.021 Primary osteoarthritis, right elbow; E78.2 Mixed hyperlipidemia; E66.9 Obesity, unspecified; Z68.30 Body mass index [BMI] 30.0-30.9, adult
CPT/HCPCS: 99213; G0463

== ENCOUNTER 2024-10-17 09:28 | Outpatient (CLI) | payer OTHER, SELFPAY ==
--- NOTE | ~2024-10-17 | CT_ITS ---
EXAMINATION: CT elbow RT wo con DATE: 10/17/2024 10:00 INDICATION: Primary osteoarthritis of the right elbow TECHNIQUE: High resolution computed tomography (CT) of the right elbow was performed without intraven ous contrast. Additional sagittal and coronal reconstructions were performed. Automated exposure cont rol and iterative reconstruction technique were employed. The dose-length product was 545.89 mGy-cm. COMPARISON: Right elbow radiographs dated 06/08/2024 FINDINGS: Bone alignment is normal. No fracture. There is moderate osteoarthritis at the right elbow with brenda nal osteophytes and moderate nonuniform joint space narrowing involving all 3 compartments of the elb ow joint. A few scattered tiny foci of cystlike change underlying the humeral, radial and ulnar artic ular cortices consistent with overlying high-grade chondromalacia. No elbow joint effusion. Small ent hesophytes at the common extensor tendon wad origin at the lateral epicondyle. Soft tissues are unrem arkable. IMPRESSION: 1. Moderate osteoarthritis at the right elbow. Reviewed, dictated and finalized at location B. E DOZER OPERATOR
== END 2024-10-17 09:29 | disposition home or self-care (01) ==
PROVIDERS: PCP Family Medicine; Visit Provider Orthopaedic Surgery
DX: M19.021 Primary osteoarthritis, right elbow (principal)
CPT/HCPCS: 73200

== ENCOUNTER 2025-01-15 15:15 | Emergency (ER) | payer OTHER, SELFPAY ==
--- OUTSIDE RECORDS SUMMARY | 2025-01-15 15:17 | XMS_ITS | Referral Summary ---
Author Organization [facility] Physician Of [facility] 1 Address [address] [place] [address] Care Team Providers Care Sash Clamp Operator Name Role Phone Charanjit Patrick MD Primary Care Provider [phone] Encounters Date Type Department Care Team Description 12/14/2024 2:20 PM CDT Office Visit [facility] Orthopaedic Surgery [address] 1[address] [place] [address] Jurgen Ewing MD Primary osteoarthritis of right elbow (Primary Dx) from Last 3 Months Allergies Active Allergy Reactions Criticality Noted Date Comments Codeine Delusions,Nausea only Medium 11/22/2018 Tearful Penicillins Rash Medium 09/06/2018 Sulfa (Sulfonamide Antibiotics) Rash Medium 09/06/2018 Medications DAILY MULTI-VITAMIN ORAL Take 1 tablet by mouth every morning. Active ibuprofen (ADVIL,MOTRIN) 800 mg tablet TK 1 T PO Q 8 H, Pain 0 8 Active omeprazole OTC (PriLOSEC OTC) 20 mg EC tabletIndications: Treatment of Non-Bleeding Gastric Disorder Take 20 mg by mouth every morning. Active acetaminophen 500 mg capsuleIndications :Pain Take 2 capsules (1,000 mg total) by mouth every 6 (six) hours 30 tablet 9 Active oxyCODONE (ROXICODONE) 5 mg immediate release tabletIndications: Pain Take 1 tablet (5 mg total) by mouth every 4 (four) hours as needed for pain (pain not controled by acetaminophen ) 10 tablet 9 Active polyethylene glycol (MIRALAX) 17 gram packetIndications: constipation Take 1 packet (17 g total) by mouth daily 14 packet 9 Active dibucaine (NUPERCAINAL) 1 % ointment Apply topically as needed (Apply to tip of penis for catheter discomfort) 28 g 9 Active oxybutynin XL (Ditropan XL) 10 mg 24 hr tabletIndications: Bladder Hyperactivity Take 1 tablet (10 mg total) by mouth daily 30 tablet 3 0 Active sildenafiL, pulm.hypertension, (REVATIO) 20 mg tabletIndications: Prostate cancer (HCC) TAKE 1 BY MOUTH ONCE DAILY ON THURSDAY THRU THURSDAY, 5 TABLETS ON THU AND NOTHING ON THURSDAY 90 tablet 3 Active Active Problems Problem Noted Date Diagnosed Date Prostate cancer 11/10/2018 Overview (11/10/2018): Added automatically from request for surgery [id number] Elevated PSA 09/09/2018 Overview (09/09/2018): Added automatically from request for surgery [id number] Social History Tobacco Use Types Packs/Day Years Used Date Smoking Tobacco: Never Smokeless Tobacco: Never Alcohol Use Standard Drinks/Week Comments No 0 (1 standard drink = 0.6 oz pur e alcohol) Sex and Gender Information Value Date Recorded Sex Assigned at Not on file 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 Gender Identity Not on file Sexual Orientation Not on file Last Filed Vital Signs Vital Sign Reading Time Taken Comments Blood Pressure 125/80 12/15/2018 7:24 PM CDT Pulse 78 12/15/2018 7:24 PM CDT Temperature 36.2 C (97.2 F) 12/17/2020 5:01 PM CDT Respiratory Rate 18 12/15/2018 7:24 PM CDT Oxygen Saturation 97% 12/15/2018 7:24 PM CDT Inhaled Oxygen Concentration - - Weight 86.2 kg (190 lb) 12/15/2018 7:24 PM CDT Height 167.6 cm (5' 6 ) 12/15/2018 7:24 PM CDT Body Mass Index 30.67 12/15/2018 7:24 PM CDT Plan of Treatment Not on file Procedures Procedure Name Priority Date/Time Associated Diagnosis Comments PSA SCREEN Routine 06/18/2020 10:02 AM CDT from Last 3 Months or Most Recently Relevant to Health Maintenance Results * PSA screen (06/18/2020 10:02 AM CDT) PSA <0.1 < OR = 4.0 ng/mL [facility] Comment: The total PSA value from this assay system is standardized against the WHO standard. The test result will be approximately 20% lower when compared to the equimolar-standardized total PSA (Lisa Thanh). Comparison of serial PSA results should be interpreted with this fact in mind. This test was performed using the Siemens chemiluminescent method. Values obtained from different assay methods cannot be used interchangeably. PSA levels, regardless of value, should not be interpreted as absolute evidence of the presence or absence of disease. 06/18/2020 10:0 2 AM CDT 06/18/2020 10:03 AM CDT us [place] MD LAB BLOOD ORDERABLES Final Re sult [facility] [address] [place] [address] from Last 3 Months or Most Recently Relevant to Health Maintenance Insurance MEDICARE [facility] [id number] [facility] MEDIC[facility] [id number] * Guarantor: CARLOS SHAH Account Type Relation to Patient Date of Phone Billing Address Personal/Family Advance Directives For more information, please contact: [phone] * Full Code (Latest Code Status on File) Date Activated Date Inactivated Comments 12/10/2018 2:20 PM 12/11/2018 9:07 PM Care Teams Sash Clamp Operator Relationship Specialty Start Date End Date Charanjit Patrick MD [address] [facility] [address] PCP - General Family Medicine 09/06/18
--- OUTSIDE RECORDS SUMMARY | 2025-01-15 15:17 | XMS_ITS | Clinical Summary ---
Author Organization [facility] Physician Of [facility] [address] [place] [id number] Care Team Providers Care Wheel Shop Supervisor Name Role Phone Charanjit Patrick MD Primary Care Provider [phone] Allergies Active Allergy Reactions Criticality Noted Date [...] (11/10/2018): Added automatically from request for surgery [id number] Elevated PSA 09/09/2018 Overview (09/09/2018): Added automatically from request for surgery [id number] Encounters Date Type Department Care Team Description 12/14/2024 2:20 PM CDT Office Visit [facility] Orthopaedic Surgery [address] [facility] 1[address] [place] [address] Jurgen Ewing MD Primary osteoarthritis of right elbow (Primary Dx) from Last 3 Months Surgical History Surgery Date Site/Laterality Comments HERNIA REPAIR PROSTATE BIOPSY Medical History Medical History Date Comments Kidney stone GERD (gastroesophageal reflux disease) Prostate CA (HCC) BPH (benign prostatic hyperplasia) Family History Medical History Relation Name Comments No Known Problems Father No Known Problems Mother Relation Name Status Comments Father Mother Social History Tobacco Use Types Packs/Day Years Used Date Smoking Tobacco: Never Smokeless Tobacco: Never Alcohol Use Standard Drinks/Week Comments No 0 (1 standard drink = 0.6 oz pur e alcohol) Sex and Gender Information Value Date Recorded Sex Assigned at Not on file 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 Gender Identity Not on file Sexual Orientation Not on file Obstetrics History Last Filed Vital Signs Vital Sign Reading [...] 12/15/2018 7:24 PM CDT Plan of Treatment Health Maintenance Due Date Last Done Comments Colon Cancer Screening-Colonoscopy 1955 Depression Screening 1955 Fall Risk Assessment 1955 Hepatitis C Screening 1955 DTaP/Tdap/Td Vaccine (1 - Tdap) 1964 Hepatitis B Screening 1971 Zoster Vaccine (1 of 2) 2003 Well Visit 65+ 2018 Pneumococcal vaccine 65+ (2 of 2 - PPSV23) 08/18/2020 08/18/2019 Influenza Vaccine (Season Ended) 2025 08/18/20 19 Prostate Cancer Screening-PSA Discontinued , 12/14/2019, 03/15/2019, Additional history exists Procedures Procedure Name Priority Date/Time Associated Diagnosis Comments PSA SCREEN Routine 06/18/2020 10:02 AM CDT from Last 3 Months or Most Recently Relevant to Health Maintenance Results * PSA screen (06/18/2020 10:02 AM CDT) PSA <0.1 < OR = 4.0 ng/mL [facility] Comment: The total PSA value from [...] LAB BLOOD ORDERABLES Final Re sult [facility] [id number] [id number] from Last 3 Months or Most Recently Relevant to Health Maintenance Insurance MEDICARE [facility] [id number] MEDICARE [employer] [facility] MEDICARE MEDICARE [facility] [id number] * Guarantor: CARLOS SHAH Account Type Relation to Patient Date of Phone Billing Address Personal/Family Advance Directives For more information, please contact: [phone] * Full Code (Latest Code Status on File) Date Activated Date Inactivated Comments 12/10/2018 2:20 PM 12/11/2018 9:07 PM Care Teams Wheel Shop Supervisor Relationship Specialty Start Date End Date Charanjit Patrick MD [address] [address] PCP - General Family Medicine 09/06/18
[2025-01-15 15:24] VITALS: BP 148/57; PULSE 76; RESP 16; TEMP 36.3; O2SAT 96
--- NOTE | 2025-01-15 15:56 | ED.GENADULT ---
HPI - General Adult General Chief complaint: Head Injury Stated complaint: Laceration To Head Source: patient Mode of arrival: ambulatory Limitations: no limitations History of Present Illness HPI narrative: Pt presents for evaluation of a head injury. He was getting into a [employer] and hit the top of his head against a metal plate. He now has a small laceration to his scalp. No LOC. He is not on blood thinners. No vomiting since the episode. He is not UTD on tetanus. He is not diabetic. He states his pain in the affected area is throbbing and mild. Related Data Home Medications ?Medication ?Instructions ?Recorded ?Confirmed ?Last Taken ?Type omeprazole 20 mg capsule,delayed 20 mg PO DAILY 10/19/23 06/12/24 Unknown History release Allergies Allergy/AdvReac Type Severity Reaction Status Date / Time Penicillins Allergy Intermediate Hives Verified 01/15/25 15:40 Sulfa (Sulfonamide Allergy Intermediate Hives Verified 01/15/25 15:40 Antibiotics) Review of Systems Review of Systems: CONSTITUTIONAL: Denies fever, chills, or sweats. EYES: Denies visual changes, redness, or discharge. ENT: Denies rhinorrhea, congestion, sore throat, or otalgia. CARDIOVASCULAR: Denies chest pain, palpitations, or edema. RESPIRATORY: Denies cough or dyspnea. GASTROINTESTINAL: Denies abdominal pain, nausea, vomiting, or diarrhea. GENITOURINARY: Denies dysuria or hematuria. SKIN: Reports laceration to the scalp. MUSCULOSKELETAL: Denies back pain, joint pain, or myalgia. NEUROLOGIC: Reports headache. Denies numbness, dizziness, or weakness. PSYCHIATRIC: Denies anxiety or depression. [facility] Past Medical History Medical History Otitis externa Otitis media Tear of medial meniscus of right knee Arthritis of right elbow Oral abscess Obesity (BMI 30.0-34.9) Motion sickness Decreased range of motion of right elbow Thoracic radiculitis right-sided thoracic pain with epidural injection T10-T11 12/17/2021 Acute bronchitis (~10/21/21) Trigger finger, right middle finger Trigger finger, left middle finger Right hand pain Hand paresthesia Left hand pain Carpal tunnel syndrome on both sides Vitamin B12 normal at 564 with folic acid 12.4 on 03/11/2022. Chronic low back pain with left-sided sciatica (~12/28/20) MRI on 04/30/2021 reveals mild to moderate degenerative disc disease and arthritis with moderate bulging disc at L5-S1 with facet arthropathy worse on the left than the right. Instability of left knee joint Low back pain radiating to left lower extremity Acute internal derangement of left knee Left knee pain Abscessed tooth BMI 31.0-31.9,adult Acute bilateral low back pain with left-sided sciatica (~12/28/20) Mixed hyperlipidemia Total cholesterol 238, triglycerides 107, HDL 49, LDL 167 on 03/11/2022. LDL 160 on 12/14/2020. Abnormal fasting glucose (12/14/20) Glucose 107 with hemoglobin A1c 5.8 on 03/11/2022. glucose 120 on 12/15/2019. BMI 32.0-32.9,adult Bilateral knee pain Right knee pain complex medial meniscus tear with chondromalacia of the patella on MRI 06/23/2023. Colon cancer screening Patient declines any colon cancer screening Encounter for wellness examination in adult Actinic keratosis (12/14/20) Fungal infection of toenail Ingrown toenail of right foot Seasonal allergic rhinitis Intrinsic sphincter deficiency Erectile dysfunction after radical prostatectomy Testosterone 602 with free testosterone 65.8 on 03/11/2022. Urinary bladder incontinence Cholelithiasis NOS Chronic low back pain without sciatica Chronic right-sided thoracic back pain Prostate cancer radical prostatectomy. Surgical History Surgical History History of arthroscopy of right knee Right knee medial meniscectomy July 14, 2023 S/P left inguinal herniorrhaphy History of radical prostatectomy Family History Family History Mother Asthma Father No problems noted. Other Family history of allergic disorder Social History Social History Smoking status: Never smoker Second hand tobacco smoke exposure: No Alcohol intake: never Substance use: never Substance use type: does not use Do You Feel Safe in your Home?: Yes Lack of Transportation: No Lack of Food: Never True Current Housing: I Have Housing Concerned About Future Housing: No Difficulty Paying Gas/Electric Bills: No Difficulty Paying for Meds: No Currently Unemployed: No Education: Bachelor's Degree Difficulty w/ Childcare or Family Care: No Living arrangements: with family Additional living arrangements comments: Occupation/Education: occupation 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 HEAD: Normocephalic EYES: PERRLA and EOMI. ENT: Nares clear, no rhinorrhea or epistaxis. Mucous membranes moist. Oropharynx without tonsillar hypertrophy exudate or other lesions. Bilateral TMs pearly sue nonbulging NECK: Supple. No adenopathy or masses. No carotid bruits or JVD CHEST: Clear to auscultation. No respiratory distress. No wheezes rales or rhonchi HEART: Regular rate and rhythm. No murmur heard. Normal peripheral pulses. ABDOMEN: Soft, nontender, nondistended, normal active bowel sounds. EXTREMITIES: Normal range of motion. No edema. SKIN: Warm, dry, no rash. Approximately 1 cm superficial linear laceration to the parietal region of his scalp NEURO: No focal deficits. Alert and oriented x3. PSYCH: Normal mood and affect. Course Course Emergency Course: This is a 69-year-old male who presented for evaluation of a scalp laceration. Wound was clean and closed with 2 Steri-Strips. Patient tolerated well. Updated on tetanus. He did not feel neuro imaging was warranted. He is neurologically intact. I did advise if he has any change in mentation or has vomiting/change in level of consciousness, he should go to the emergency department. Otherwise he will follow-up with his primary care provider. Patient in agreement with plan of care. Level of Care: Express Care Visit Vital Signs Vital signs: Vital Signs Temperature 36.3 C L 01/15/25 15:24 Pulse Rate 76 01/15/25 15:24 Respiratory Rate 16 01/15/25 15:24 Blood Pressure 148/57 H 01/15/25 15:24 Pulse Oximetry 96 01/15/25 15:24 Oxygen Delivery Room Air 01/15/25 15:24 Temperature 36.3 C L 01/15/25 15:24 Pulse Rate 76 01/15/25 15:24 Respiratory Rate 16 01/15/25 15:24 Blood Pressure 148/57 H 01/15/25 15:24 Pulse Oximetry 96 01/15/25 15:24 Oxygen Delivery Room Air 01/15/25 15:24 Procedures Laceration Laceration 1: Date: 01/15/25 Time: 16:26 Site: scalp Size (cm): 1 Description: linear Pre-repair: irrigated ====== Skin Level ====== ====== Subcutaneous Layer ====== ====== Muscle Layer ====== ====== Tendon Layer ====== Dressing: closed with steristrips x 2. Medical Decision Making Vital Signs Vital Signs: Vital Signs Temperature 36.3 C L 01/15/25 15:24 Pulse Rate 76 01/15/25 15:24 Respiratory Rate 16 01/15/25 15:24 Blood Pressure 148/57 H 01/15/25 15:24 Pulse Oximetry 96 01/15/25 15:24 Oxygen Delivery Room Air 01/15/25 15:24 Temperature 36.3 C L 01/15/25 15:24 Pulse Rate 76 01/15/25 15:24 Respiratory Rate 16 01/15/25 15:24 Blood Pressure 148/57 H 01/15/25 15:24 Pulse Oximetry 96 01/15/25 15:24 Oxygen Delivery Room Air 01/15/25 15:24 Discharge Plan Discharge Clinical Impression: Laceration of scalp Patient Disposition: Home Condition: Stable Instructions: Antibiotic Form, Laceration (ED), Skin Adhesive Strips (ED) Patient Language: Portuguese Prescriptions: No Action omeprazole 20 mg capsule,delayed release(DR/EC) 20 mg PO DAILY Follow-up/Referrals: Charanjit Patrick MD [Primary Care Provider] - Time of Disposition: 16:23
[2025-01-15] MEDS: TETANUS,DIPHTHERIA,AC PERTUSSIS ADULT (0.5 ML) BOOSTRIX IM (16:03)
== END 2025-01-15 16:26 | disposition home or self-care (01) ==
PROVIDERS: Emergency Provider Nurse Practitioner; PCP Family Medicine
DX: S01.01XA Laceration without foreign body of scalp, initial encounter (principal); W22.8XXA Striking against or struck by other objects, initial encounter; Z23 Encounter for immunization; E78.2 Mixed hyperlipidemia; E66.9 Obesity, unspecified; Z68.32 Body mass index [BMI] 32.0-32.9, adult; M19.021 Primary osteoarthritis, right elbow; Z85.46 Personal history of malignant neoplasm of prostate; Z90.79 Acquired absence of other genital organ(s)
CPT/HCPCS: 90471; 90715; 99212; G0463

== ENCOUNTER 2025-02-14 15:00 | Outpatient (CLI) | payer OTHER, SELFPAY ==
--- NOTE | ~2025-02-14 | XR_ITS ---
Left Hand Technique: PA, oblique, and lateral views were obtained. Clinical History: Pain Findings: No acute fracture or dislocation is seen. Osseous alignment is anatomic. There is moderate degenerative change of the first CMC joint. Soft tissues are unremarkable. Impression: Moderate degenerative change of the first CMC joint. Reviewed, dictated and finalized at [facility]. Impression: Moderate degenerative change of the first CMC joint.
--- OUTSIDE RECORDS SUMMARY | 2025-02-14 15:03 | XMS_ITS | Clinical Summary ---
Author Organization [facility] Physician Of [facility] [address] [place] [address] Care Team Providers Care Restaurant Inspector Name Role Phone Charanjit Patrick MD Primary Care Provider [phone] [phone] Allergies Active Allergy Reactions Criticality Noted Date [...] Active Problems Problem Noted Date Diagnosed Date Primary osteoarthritis of right elbow 01/24/2025 Prostate cancer 11/10/2018 Overview (11/10/2018): Added automatically from request for surgery [id number] Elevated PSA 09/09/2018 Overview (09/09/2018): Added automatically from request for surgery [id number] Encounters Date Type Department Care Team Description 01/24/2025 9:20 AM CDT Office Visit [facility] Orthopaedic Surgery [address] [place] [address] 1st Floor [address] [place] [address] Mikhail Vargas MD Primary osteoarthritis of right elbow 01/18/2025 8:29 AM CDT - 01/18/2025 11:59 PM CDT Hospital Encounter [facility] [address] [place] [address] Discharge Disposition: Discharge to home or self care 01/18/2025 8:28 AM CDT - 01/18/2025 11:59 PM CDT Hospital Encounter [facility]) [address] [place] [address] Discharge Disposition: Discharge to home or self care 12/14/2024 2:20 PM CDT Office Visit [facility] Orthopaedic Surgery [address] [facility] 1st Floor [address] [place] [address] Jurgen Ewing MD Primary osteoarthritis of right [...] on file 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 Gender Identity Not on file Sexual Orientation [...] - - Weight 86.2 kg (190 lb) 01/24/2025 10:34 AM CDT Height 167.6 cm (5' 6 ) 01/24/2025 10:34 AM CDT Body Mass Index 30.67 01/24/2025 10:34 AM CDT Plan of Treatment Upcoming Encounters Date Type Department Care Team (Late st Contact Info) Description 04/17/2025 7:30 AM CDT Hospital Encounter [facility] Surgery at [address] [address] Mikhail Vargas MD [address] [place] [address] [place] [address] 04/17/2025 7:30 AM CDT - 04/17/2025 9:45 AM CDT Surgery [facility] Surgery at [facility] Medicine [address] [place] [address] Mikhail Vargas MD [address] [place] [address] RIGHT ELBOW ARTHROSCOPIC DEBRIDEMENT, REMOVAL OF OSTEOPHYTES Scheduled Procedures Name Priority Associated Diagnoses Date/Ti me ARTHROSCOPY - DEBRIDEMENT ELBOW Primary osteoarthritis of right elbow 04/17/2025 7:30 AM CDT Health Maintenance Due Date Last Done Comments [...] Procedure Name Priority Date/Time Associated Diagnosis Comments MSK CT OUTSIDE REFERENCE Routine 01/18/2025 8:29 AM CDT XR TRANSFER OF OUTSIDE FILMS Routine 01/18/2025 8:28 AM CDT PSA SCREEN Routine 06/18/2020 10:02 AM CDT from Last 3 Months or Most Recently Relevant to Health Maintenance Results * MSK CT Outside Reference (01/18/2025 8:29 AM CDT) Impressions [facility] - 01/18/2025 8:29 AM CDT These images are for Reference purposes only and have not been reviewed by [facility]. There will be no report generated by a [facility] Radiologist. Narrative [facility] - 01/18/2025 8:29 AM CDT EXAMINATION: Images For Reference Purposes Only us Mikhail Vargas MD IMG CT PROCEDURES Fin al Result [facility] * XR Outside Reference (01/18/2025 8:28 AM CDT) Impressions [facility] - 01/18/2025 8:28 AM CDT These images are for Reference purposes only and have not been reviewed by [facility]. There will be no report generated by a [facility] Radiologist. Narrative [facility] - 01/18/2025 8:28 AM CDT EXAMINATION: Images For Reference Purposes Only us Mikhail Vargas MD IMG XR PROCEDURES Fin al Result Performing Organization Address [facility] de Phone Number [facility] * PSA screen (06/18/2020 10:02 AM CDT) PSA <0.1 < OR = 4.0 ng/mL [facility] Comment: The total PSA value from this assay system is standardized against the WHO standard. The test result will be approximately 20% lower when compared to the equimolar-standardized total PSA (Lisa Pon[place]). Comparison of serial PSA results should be [...] MD LAB BLOOD ORDERABLES Final Re sult Performing Organization Address [facility] Co de Phone Number [facility] [address] [place] [address] from Last 3 Months or Most Recently Relevant to Health Maintenance Insurance MEDICARE [facility] [address] MEDICARE [facility] MEDICARE MEDICARE [facility] [id number] * Guarantor: CARLOS SHAH Account Type Relation to Patient Date of Phone Billing Address Personal/Family Advance Directives For more information, please contact: [phone] * Full Code (Latest Code Status on File) Date Activated Date Inactivated Comments 12/10/2018 2:20 PM 12/11/2018 9:07 PM Care Teams Restaurant Inspector Relationship Specialty Start Date End Date Charanjit Patrick MD [address] [address] PCP - General Family Medicine 09/06/18"
--- OUTSIDE RECORDS SUMMARY | 2025-02-14 15:03 | XMS_ITS | Referral Summary ---
Author Organization [facility] Physician Of [place] [address] Address [address] [place] [address] Care Team Providers Care Electrical And Instrument Engineer Name Role Phone Charanjit Patrick MD Primary Care Provider [phone] [phone] Encounters Date Type Department Care Team Description 01/24/2025 9:20 AM CDT Office Visit [facility] Orthopaedic Surgery [address] [facility] 1st Floor [address] [place] [address] Mikhail Vargas MD Primary osteoarthritis of right elbow 01/18/2025 8:29 AM CDT - 01/18/2025 11:59 PM CDT Hospital Encounter [facility]) [address] [place] [address] Discharge Disposition: Discharge to home or self care 01/18/2025 8:28 AM CDT - 01/18/2025 11:59 PM CDT Hospital Encounter [facility]) [address] [place] [address] Discharge Disposition: Discharge to home or self care 12/14/2024 2:20 PM CDT Office Visit [facility] Orthopaedic Surgery [address] 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 Gender Identity Not on file Sexual Orientation [...] Description 04/17/2025 7:30 AM CDT Hospital Encounter [facility] Surgery at [address] [address] Mikhail Vargas MD [address] [facility] [address] [place] [address] 04/17/2025 7:30 AM CDT - 04/17/2025 9:45 AM CDT Surgery [facility] Surgery at [address] [address] Mikhail Vargas MD [address] [facility] [place] [address] RIGHT ELBOW ARTHROSCOPIC DEBRIDEMENT, REMOVAL OF OSTEOPHYTES Scheduled Procedures Name Priority Associated Diagnoses Date/Ti me ARTHROSCOPY - DEBRIDEMENT ELBOW Primary osteoarthritis of right elbow 04/17/2025 7:30 AM CDT Procedures Procedure Name Priority Date/Time Associated Diagnosis Comments MSK CT OUTSIDE REFERENCE Routine 01/18/2025 8:29 AM CDT XR TRANSFER OF OUTSIDE FILMS Routine 01/18/2025 8:28 AM CDT PSA SCREEN Routine 06/18/2020 10:02 AM CDT from Last 3 Months or Most Recently Relevant to Health Maintenance Results * MSK CT Outside Reference (01/18/2025 8:29 AM CDT) Impressions [facility] - 01/18/2025 8:29 AM CDT These images are for Reference purposes only and have not been reviewed by [facility]. There will be no report generated by a [facility] Radiologist. Narrative [facility] - 01/18/2025 8:29 AM CDT EXAMINATION: Images For Reference Purposes Only Mikhail Vargas MD IMG CT PROCEDURES Fin al Result Performing Organization Address [facility] Co de Phone Number [facility] * XR Outside Reference (01/18/2025 8:28 AM CDT) Impressions [facility] - 01/18/2025 8:28 AM CDT These images are for Reference purposes only and have not been reviewed by [facility]. There will be no report generated by a [facility] Radiologist. Narrative [facility] - 01/18/2025 8:28 AM CDT EXAMINATION: Images For Reference Purposes Only Mikhail Vargas MD IMG XR PROCEDURES Fin al Result [facility] * PSA screen (06/18/2020 10:02 AM CDT) PSA <0.1 < OR = 4.0 ng/mL [facility] Comment: The total PSA value from this assay system is standardized against the WHO standard. The test result will be approximately 20% lower when compared to the equimolar-standardized total PSA (Lisa Howard). Comparison of serial PSA results should be [...] MD LAB BLOOD ORDERABLES Final Re sult [facility] [address] [facility] [place] [address] from Last 3 Months or Most Recently Relevant to Health Maintenance Insurance MEDICARE [facility] [id number] [facility] [employer] Address: [address] [place] [address] MEDICARE [facility] [employer] Address: [address] [place] [address] MEDICARE MEDICARE [facility] [id number] [facility] [employer] Address: [place] [id number] [place] [address] * Guarantor: CARLOS SHAH Account Type Relation to Patient Date of Phone Billing Address Personal/Family Advance Directives For more information, please contact: [phone] * Full Code (Latest Code Status on File) Date Activated Date Inactivated Comments 12/10/2018 2:20 PM 12/11/2018 9:07 PM Care Teams Electrical And Instrument Engineer Relationship Specialty Start Date End Date Charanjit Patrick MD [address] [address] PCP - General Family Medicine 09/06/18
== END 2025-02-14 15:01 | disposition home or self-care (01) ==
PROVIDERS: PCP Family Medicine; Visit Provider Plastic Surgery
DX: M19.042 Primary osteoarthritis, left hand (principal)
CPT/HCPCS: 73130

== ENCOUNTER 2025-03-17 13:32 | Emergency (ER) | payer OTHER, SELFPAY ==
--- OUTSIDE RECORDS SUMMARY | 2025-03-17 13:36 | XMS_ITS | Referral Summary ---
Author Organization [facility] Physician Of [facility] 1 Address [address] [place] [address] Care Team Providers Care Watcher Automat Long Goods Name Role Phone Charanjit Patrick MD Primary Care Provider [phone] [phone] Encounters Date Type Department Care Team Description 01/24/2025 9:20 AM CDT Office Visit [facility] Orthopaedic Surgery [address] [facility] 1st Floor [address] [place] [address] Mikhail Vargas MD Primary osteoarthritis of right elbow 01/18/2025 8:29 AM CDT - 01/18/2025 11:59 PM CDT Hospital Encounter [facility]) [facility] [place] [address] Discharge Disposition: Discharge to home or self care 01/18/2025 8:28 AM CDT - 01/18/2025 11:59 PM CDT Hospital Encounter [facility]) [facility] [place] [address] Discharge Disposition: Discharge to home or self care from Last 3 Months Allergies Active Allergy [...] (11/10/2018): Added automatically from request for surgery [id number] Elevated PSA 09/09/2018 Overview (09/09/2018): Added automatically from request for surgery [id number] Social History Tobacco Use Types Packs/Day Years Used Date Smoking Tobacco: Never Smokeless Tobacco: Never Alcohol Use Standard Drinks/Week Comments No 0 (1 standard drink = 0.6 oz pur e alcohol) Sex and Gender Information Value Date Recorded Sex Assigned at Not on file 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 Gender Identity Not on file Sexual Orientation [...] 10:34 AM CDT Height 167.6 cm (5' 6) 01/24/2025 10:34 AM CDT Body Mass Index 30.67 01/24/2025 10:34 AM CDT Plan of Treatment Upcoming Encounters Date Type Department Care Team (Late st Contact Info) Description 04/17/2025 7:30 AM CDT Hospital Encounter [facility] Surgery at [address] [address] Mikhail Vargas MD [address] [facility] [address] [place] [address] 04/17/2025 7:30 AM CDT - 04/17/2025 9:45 AM CDT Surgery [facility] Surgery at [address] [address] Mikhail Vargas MD [address] [facility] [address] [place] [address] RIGHT ELBOW ARTHROSCOPIC DEBRIDEMENT, REMOVAL OF OSTEOPHYTES [...] only and have not been reviewed by [facility]. There will be no report generated by a [facility] Radiologist. Narrative [facility] - 01/18/2025 8:29 AM CDT EXAMINATION: Images For Reference Purposes Only Mikhail Vargas MD IM CT PROCEDURES Fin al Result Performing Organization Address [facility] de Phone Number [facility] * XR Outside Reference (01/18/2025 8:28 AM CDT) Impressions [facility] - 01/18/2025 8:28 AM CDT These images are for Reference purposes only and have not been reviewed by [facility]. There will be no report generated by a [facility] Radiologist. Narrative [facility] - 01/18/2025 8:28 AM CDT EXAMINATION: Images For Reference Purposes Only Mikhail Vargas MD IMG XR PROCEDURES Fin al Result Performing Organization Address [facility] Co de Phone Number [facility] * PSA screen [...] 2 AM CDT 06/18/2020 10:03 AM CDT [place] MD LAB BLOOD ORDERABLES Final Re sult [facility] [address] [address] [address] from Last 3 Months or Most Recently Relevant to Health Maintenance Insurance MEDICARE [facility] [id number] MEDICARE [facility] MEDICARE MEDICARE [facility] [id number] * Guarantor: CARLOS SHAH Account Type Relation to Patient Date of Phone Billing Address Personal/Family Advance Directives For more information, please contact: [phone] * Full Code (Latest Code Status on File) Date Activated Date Inactivated Comments 12/10/2018 2:20 PM 12/11/2018 9:07 PM Care Teams Watcher Automat Long Goods Relationship Specialty Start Date End Date Charanjit Patrick MD [address] [id number] PCP - General Family Medicine 09/06/18
--- OUTSIDE RECORDS SUMMARY | 2025-03-17 13:36 | XMS_ITS | Clinical Summary ---
Author Organization [facility] [address] [place] [address] Care Team Providers Care Care Director Rn Name Role Phone Charanjit Patrick MD Primary Care Provider [phone] Allergies Active Allergy Reactions Criticality Noted Date [...] (11/10/2018): Added automatically from request for surgery [id number] Elevated PSA 09/09/2018 Overview (09/09/2018): Added automatically from request for surgery [id number] Encounters Date Type Department Care Team Description 01/24/2025 9:20 AM CDT Office Visit [facility] Orthopaedic Surgery [address] [facility] 1st Floor [address] [place] [address] Mikhail Vargas MD Primary osteoarthritis of right elbow 01/18/2025 8:29 AM CDT - 01/18/2025 11:59 PM CDT Hospital Encounter [facility] [address] [place] [address] Discharge Disposition: Discharge to home or self care 01/18/2025 8:28 AM CDT - 01/18/2025 11:59 PM CDT Hospital Encounter 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 Surgery at [address] [address] Mikhail Vargas MD [address] [facility] [address] [place] [address] 04/17/2025 7:30 AM CDT - 04/17/2025 9:45 AM CDT Surgery [facility] Surgery at [address] [address] Mikhail Vargas MD [address] [facility] [address] [place] [address] RIGHT ELBOW ARTHROSCOPIC DEBRIDEMENT, REMOVAL OF OSTEOPHYTES [...] only and have not been reviewed by [facility]. There will be no report generated by a [facility] Radiologist. Narrative RAD_PACS_[facility] - 01/18/2025 8:29 AM CDT EXAMINATION: Images For Reference Purposes Only us Mikhail Vargas MD IMG CT PROCEDURES Fin al Result [facility] * XR Outside Reference (01/18/2025 8:28 AM CDT) Impressions RAD_PACS_[facility] - 01/18/2025 8:28 AM CDT These images are for Reference purposes only and have not been reviewed by [facility]. There will be no report generated by a [facility] Radiologist. Narrative [facility] - 01/18/2025 8:28 AM CDT EXAMINATION: Images For Reference Purposes Only us Mikhail Vargas MD IMG XR PROCEDURES Fin al Result Performing Organization Address [facility] Co de Phone Number [facility]_PACS[facility] * PSA screen (06/18/2020 10:02 AM CDT) PSA <0.1 < OR = 4.0 ng/mL [facility] Comment: The total PSA value from this assay system is standardized against the WHO standard. The test result will be approximately 20% lower when compared to the equimolar-standardized total PSA (Lisa [place]). Comparison of serial PSA results should be [...] ORDERABLES Final Re sult Performing Organization Address [facility] Co de Phone Number [email or web address] [address] [place] [address] from Last 3 Months or Most Recently Relevant to Health Maintenance Insurance MEDICARE [facility] [id number] MEDICARE [facility] MEDICARE MEDICARE [facility] Address: [address] [address] [place] [address] [facility] [id number] * Guarantor: CARLOS SHAH Account Type Relation to Patient Date of Phone Billing Address Personal/Family Advance Directives For more information, please contact: [phone] * Full Code (Latest Code Status on File) Date Activated Date Inactivated Comments 12/10/2018 2:20 PM 12/11/2018 9:07 PM Care Teams Care Director Rn Relationship Specialty Start Date End Date Charanjit Patrick MD [address] [address] PCP - General Family Medicine 09/06/18
[2025-03-17 13:41] VITALS: BP 154/71; PULSE 65; RESP 14; TEMP 36.5; O2SAT 99
--- NOTE | 2025-03-17 15:47 | ED.BACK ---
HPI - Back Pain/Injury General Chief Complaint: Back Pain/Injury Stated Complaint: Skin Problem/Back Pain Time Seen by Provider: 03/17/25 13:49 Source: patient and RN notes reviewed Mode of arrival: ambulatory Limitations: no limitations History of Present Illness HPI Narrative: Patient presents today complaining of intermittent right mid back pain times 3-4 weeks, worse over the last 2 days. He has been lifting heavy objects, climbing steep hills on vacation, still continues to work out, has been sleeping in a train on a hard bed recently. He denies radiation of the pain, numbness or tingling in the extremities, chest pain or shortness of breath, loss of bowel or bladder control, weakness. Pain increases with movement, or hitting bumps in his car. He has been using ibuprofen and Alee Back and Body with some mild relief. Pain decreases with rest. Related Data Home Medications ?Medication ?Instructions ?Recorded ?Confirmed ?Last Taken ?Type omeprazole 20 mg capsule,delayed 20 mg PO DAILY 10/19/23 06/12/24 Unknown History release Allergies Allergy/AdvReac Type Severity Reaction Status Date / Time Penicillins Allergy Intermediate Hives Verified 02/14/25 14:30 Sulfa (Sulfonamide Allergy Intermediate Hives Verified 02/14/25 14:30 Antibiotics) Review of Systems Review of Systems: CONSTITUTIONAL: Denies body aches, fever, chills, or sweats. EYES: Denies visual changes, redness, or discharge. ENT: Denies rhinorrhea, congestion, sore throat, or otalgia. CARDIOVASCULAR: Denies chest pain, palpitations, or edema. RESPIRATORY: Denies cough or dyspnea. GASTROINTESTINAL: Denies abdominal pain, nausea, vomiting, or diarrhea. GENITOURINARY: Denies dysuria or hematuria. SKIN: Denies rash, itching, or wounds. MUSCULOSKELETAL:+ right mid back pain NEUROLOGIC: Denies headache, numbness, tingling, or weakness. PSYCH: Denies depression or anxiety. [facility] Past Medical History Medical History Otitis externa Otitis media Tear of medial meniscus of right knee Arthritis of right elbow Oral abscess Obesity (BMI 30.0-34.9) Motion sickness Decreased range of motion of right elbow Thoracic radiculitis right-sided thoracic pain with epidural injection T10-T11 12/17/2021 Acute bronchitis (~10/21/21) Trigger finger, right middle finger Trigger finger, left middle finger Right hand pain Hand paresthesia Left hand pain Carpal tunnel syndrome on both sides Vitamin B12 normal at 564 with folic acid 12.4 on 03/11/2022. Chronic low back pain with left-sided sciatica (~12/28/20) MRI on 04/30/2021 reveals mild to moderate degenerative disc disease and arthritis with moderate bulging disc at L5-S1 with facet arthropathy worse on the left than the right. Instability of left knee joint Low back pain radiating to left lower extremity Acute internal derangement of left knee Left knee pain Abscessed tooth BMI 31.0-31.9,adult Acute bilateral low back pain with left-sided sciatica (~12/28/20) Mixed hyperlipidemia Total cholesterol 238, triglycerides 107, HDL 49, LDL 167 on 03/11/2022. LDL 160 on 12/14/2020. Abnormal fasting glucose (12/14/20) Glucose 107 with hemoglobin A1c 5.8 on 03/11/2022. glucose 120 on 12/15/2019. BMI 32.0-32.9,adult Bilateral knee pain Right knee pain complex medial meniscus tear with chondromalacia of the patella on MRI 06/23/2023. Colon cancer screening Patient declines any colon cancer screening Encounter for wellness examination in adult Actinic keratosis (12/14/20) Fungal infection of toenail Ingrown toenail of right foot Seasonal allergic rhinitis Intrinsic sphincter deficiency Erectile dysfunction after radical prostatectomy Testosterone 602 with free testosterone 65.8 on 03/11/2022. Urinary bladder incontinence Cholelithiasis NOS Chronic low back pain without sciatica Chronic right-sided thoracic back pain Prostate cancer radical prostatectomy. Surgical History Surgical History History of arthroscopy of right knee Right knee medial meniscectomy July 14, 2023 S/P left inguinal herniorrhaphy History of radical prostatectomy Family History Family History Mother Asthma Father No problems noted. Other Family history of allergic disorder Social History Social History Smoking status: Never smoker Second hand tobacco smoke exposure: No Alcohol intake: never Substance use: never Substance use type: does not use Do You Feel Safe in your Home?: Yes Lack of Transportation: No Lack of Food: Never True Current Housing: I Have Housing Concerned About Future Housing: No Difficulty Paying Gas/Electric Bills: No Difficulty Paying for Meds: No Currently Unemployed: No Education: Bachelor's Degree Difficulty w/ Childcare or Family Care: No Living arrangements: with family Additional living arrangements comments: Occupation/Education: occupation 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 Please see nursing chart for further information. There is no relevant family history pertinent to the presenting complaint Exam Narrative: GENERAL: Well-appearing, well-nourished, and in no acute distress. HEAD: Normocephalic, atraumatic. EYES: EOMI. No redness or drainage. Conjunctivae normal. ENT: Mucous membranes pink and moist.. NECK: Normal AROM. CHEST: No respiratory distress. MUSCULOSKELETAL: No bony tenderness of the thoracic or lumbar spine. Mild tenderness of the right mid thoracic paraspinal muscles. Pain increases in this area with twisting and right lateral bending at the waist. Distal sensation intact. Saddle sensation intact. Hand support dba equal and strong. 5/5 strength in BLE. EXTREMITIES: Normal range of motion. No edema. SKIN: Warm, dry, no rash. Capillary refill normal. Normal skin turgor. NEURO: No focal deficits. Alert and oriented x3. Gait steady. PSYCH: Normal affect. No signs of depression or anxiety. Course Course Level of Care: Express Care Visit Vital Signs Vital signs: Vital Signs Temperature 97.7 F 03/17/25 13:41 Pulse Rate 65 03/17/25 13:41 Respiratory Rate 14 03/17/25 13:41 Blood Pressure 154/71 H 03/17/25 13:41 Pulse Oximetry 99 03/17/25 13:41 Oxygen Delivery Room Air 03/17/25 13:41 Temperature 97.7 F 03/17/25 13:41 Pulse Rate 65 03/17/25 13:41 Respiratory Rate 14 03/17/25 13:41 Blood Pressure 154/71 H 03/17/25 13:41 Pulse Oximetry 99 03/17/25 13:41 Oxygen Delivery Room Air 03/17/25 13:41 Reviewed MDM - Back Pain/Injury MDM Narrative Medical decision making narrative: Patient continues to lift heavy objects, hike, and workout while his back has been painful, not allowing it to heal. Recommend low-dose Flexeril and some prednisone to see if this will be helpful. Recommend resting the back. Patient agrees with plan. Anticipatory guidance given Differential Diagnosis Differential diagnosis: Likely thoracic back pain and other (Thoracic back strain, bulging disc, radiculopathy) Critical Care Time Critical Care Time Critical Care Time: No Discharge Plan Discharge Clinical Impression: Strain of thoracic back region Patient Disposition: Home Condition: Stable Instructions: Thoracic Back Strain (ED) Additional Instructions: Please take the Flexeril and prednisone as directed. Do not drive within 8 hours of taking the Flexeril as it can make you drowsy. You may also take ibuprofen or Tylenol for pain if needed. No heavy lifting, jumping, twisting until your back is feeling better. Follow-up with your PCP next week if symptoms are not improving. Go to the ER immediately if you develop worsening symptoms such as numbness or tingling in your legs, feet, genitalia, loss of bowel or bladder control. Your blood pressure was elevated above 120/80 today at Urgent Care. This puts you above the threshold for follow up. Please schedule a followup visit with your personal physician as soon as possible, for further evaluation and treatment. Even blood pressure exceeding 120/80 may indicate pre-hypertension. Patient Language: [place] Prescriptions: New prednisone 20 mg tablet 40 mg PO DAILY 5 Days Qty: 10 0RF cyclobenzaprine 5 mg tablet 5 mg PO TID PRN (Reason: muscle spasm) Qty: 15 0RF No Action omeprazole 20 mg capsule,delayed release(DR/EC) 20 mg PO DAILY Follow-up/Referrals: Charanjit Patrick MD [Primary Care Provider] - Time of Disposition: 14:04
== END 2025-03-17 14:09 | disposition home or self-care (01) ==
PROVIDERS: Emergency Provider Nurse Practitioner; PCP Family Medicine
DX: S29.012A Strain of muscle and tendon of back wall of thorax, initial encounter (principal); X50.0XXA Overexertion from strenuous movement or load, initial encounter; E78.2 Mixed hyperlipidemia; Z85.46 Personal history of malignant neoplasm of prostate; Z90.79 Acquired absence of other genital organ(s); E66.9 Obesity, unspecified; Z68.30 Body mass index [BMI] 30.0-30.9, adult; M19.021 Primary osteoarthritis, right elbow
CPT/HCPCS: 99213; G0463

== ENCOUNTER 2025-03-22 15:10 | Emergency (ER) | payer OTHER, SELFPAY ==
--- NOTE | ~2025-03-22 | CT_ITS ---
CLINICAL INDICATION: Right lower back and right lower quadrant pain COMPARISON: 09/01/2023. TECHNIQUE: Multiple contiguous axial images of the abdomen, pelvis and lumbar spine were performed wi thout the administration of intravenous contrast The dose-length product (DLP) was 526.32 mGy-cm. Automated exposure control and iterative reconstruction technique were employed. FINDINGS/OBSERVATIONS: Visualized lower thorax: Interval development of a 3.3 mm solid nodule within the right lung base (axial series, image 25) an interval change from the 2022 examination. The remainder of the bilateral lung bases are clear. The heart is of normal size, without pericardial effusion. Small hiatal hernia is present. Liver: The liver demonstrates homogeneous attenuation and is not enlarged. Gallbladder and biliary system: The gallbladder is only minimally distended, containing a 13 mm calcified stone and is otherwise unre markable. Pancreas: Limited evaluation of the pancreas secondary to the lack of intravenous contrast. Punctate calcifications are present suggesting prior pancreatitis. Spleen: The spleen demonstrates homogeneous attenuation and is not enlarged. Kidneys: The bilateral kidneys are unremarkable, without hydronephrosis or renal calculi. Adrenal glands: Unremarkable. Gastrointestinal tract: Fecal stasis within the colon. Appendix: The air-filled appendix is of normal caliber (axial series, images 112 through 119) Vasculature: Unremarkable. Lymph nodes: Limited evaluation without intravenous contrast Pelvic structures: The bladder is distended, and otherwise unremarkable. The prostate gland is not enlarged. Body wall and musculoskeletal: Small fat-containing umbilical hernia. Within the lumbosacral spine: At the level of T12/L1: No significant disc disease is identified. At the level of L1/L2: No significant disc disease is identified. At the level of L2/L3: No significant disc disease is identified. At the level of L3/L4: A right paracentral disc protrusion is identified with trace mass effect on th e spinal canal and right neural foramen. At the level of L4/L5: There is a broad-based disc protrusion with mass effect on both the spinal can al and bilateral neural foramen. Hypertrophy of the ligamentum flavum is also noted, contributing to the degree of spinal stenosis, me asuring 12 mm in anterior to posterior dimension at this level. At the level of L5/S1: Is a left paracentral disc and osteophyte complex protrusion with trace mass e ffect on both the spinal canal and left neural foramen at this level. IMPRESSION: No obstructive uropathy. Degenerative disease within the lower lumbosacral spine, as detailed above. 3 mm solid nodule within the right lung base for which nonemergent follow-up with a dedicated noncont rast enhanced chest CT is suggested for further evaluation. Reviewed, dictated and finalized at location A. IMPRESSION: No obstructive uropathy. Degenerative disease within the lower lumbosacral spine, as detailed above. 3 mm solid nodule within the right lung base for which nonemergent follow-up wi th a dedicated noncontrast enhanced chest CT is suggested for further evaluatio n.
[2025-03-22 15:28] VITALS: BP 131/74; PULSE 70; RESP 18; TEMP 36.2; O2SAT 97
--- OUTSIDE RECORDS SUMMARY | 2025-03-22 17:03 | XMS_ITS | Referral Summary ---
Author Organization [facility] [place] [address] Address [address] [place] [address] Care Team Providers Care Customer Support Executive Name Role Phone Charanjit Patrick MD Primary Care Provider [phone] Encounters Date Type Department Care Team Description 01/24/2025 9:20 AM CDT Office Visit [facility] Orthopaedic Surgery [address] [facility] 1st Floor [address] [place] [address] Mikhail Vargas MD Primary osteoarthritis of right elbow 01/18/2025 8:29 AM CDT - 01/18/2025 11:59 PM CDT Hospital Encounter [facility]) [address] [place] [address] Discharge Disposition: Discharge to home or self care 01/18/2025 8:28 AM CDT - 01/18/2025 11:59 PM CDT Hospital Encounter [facility] [place] [address] Discharge Disposition: Discharge to home or self care from Last 3 Months Allergies Active Allergy Reactions Criticality Noted Date Comments Codeine Delusions,Nausea only Medium 11/22/2018 Tearful Penicillins Rash Medium 09/06/2018 Sulfa (Sulfonamide Antibiotics) Rash Medium 09/06/2018 Medications DAILY MULTI-VITAMIN ORALIndications:s upplement Take 1 tablet by mouth as needed Active omeprazole OTC (PriLOSEC OTC) 20 mg EC tabletIndications :Treatment of Non-Bleeding Gastric Disorder,acid reflux Take 1 tablet (20 mg total) by mouth every morning Active Lactobacillus acidophilus (PROBIOTIC ORAL)Indications: supplement Take 2 tablets by mouth every morning Gummies Active mv-mn/C/glutamin/ lysin/oaer537 (AIRBORNE, ASCORBATE SODIUM, ORAL)Indications: supplement Take 2 tablets by mouth every morning Gummies Active aspirin-caffeine 500-32.5 mg tabletIndications :Pain Take 2 tablets by mouth nightly Alee Back and Body Active ibuprofen (ADVIL,MOTRIN) 800 mg tablet TK 1 T PO Q 8 H, Pain 0 09/06/20 18 025 Discontinued acetaminophen 500 mg capsuleIndication s:Pain Take 2 capsules (1,000 mg total) by mouth every 6 (six) hours 30 tablet 12/12/19 19 025 Discontinued oxyCODONE (ROXICODONE) 5 mg immediate release tabletIndications :Pain Take 1 tablet (5 mg total) by mouth every 4 (four) hours as needed for pain (pain not controled by acetaminophe n) 10 tablet 12/12/19 19 025 Discontinued polyethylene glycol (MIRALAX) 17 gram packetIndications :constipation Take 1 packet (17 g total) by mouth daily 14 packet 12/12/19 19 025 Discontinued dibucaine (NUPERCAINAL) 1 % ointment Apply topically as needed (Apply to tip of penis for catheter discomfort) 28 g 12/12/19 19 025 Discontinued oxybutynin XL (Ditropan XL) 10 mg 24 hr tabletIndications :Bladder Hyperactivity Take 1 tablet (10 mg total) by mouth daily 30 tablet 3 01/19/20 20 025 Discontinued sildenafiL, pulm.hypertension , (REVATIO) 20 mg tabletIndications :Prostate cancer (HCC) TAKE 1 BY MOUTH ONCE DAILY ON THURSDAY THRU THURSDAY, 5 TABLETS ON THU AND NOTHING ON THURSDAY 90 tablet 12/20/19 23 025 Discontinued Active Problems Problem Noted Date Diagnosed Date Primary osteoarthritis of right elbow 01/24/2025 Prostate cancer 11/10/2018 Overview (11/10/2018): Added automatically from request for surgery [id number] Elevated PSA 09/09/2018 Overview (09/09/2018): Added automatically from request for surgery [id number] Immunizations Immunization Administration Dates Next Due Influenza, Quad, Adjuvantated, Intramuscular ,07/20/2020 Influenza, Quadrivalent, Spl it, Preservative Free, Intramuscular 07/20/2020 Influenza, Trivalent, Adjuvanted, Intramuscular 08/18/2019 Pneumococcal Conjugate PCV 13 08/18/2019 Pneumococcal Polysaccharide PPV23 07/20/2020 Tdap 01/15/2025 ZOSTER Recombinant 10/02/2020,07/20/2020 Social History Tobacco Use Types Packs/Day Years Used Date Smoking Tobacco: Never Passive Smoke Exposure: Never Smokeless Tobacco: Never Tobacco Cessation:Counseling Given: Not Answered Alcohol Use Standard Drinks/Week Comments No 0 (1 standard drink = 0.6 oz pur e alcohol) AUDIT-C Answer Date Recorded Q1: How often do you have a drink containing alcohol? Never 03/20/2025 Q2: How many drinks containi ng alcohol do you have on a typical day when you are drinking? Patient does not drink Q3: How often do you have si x or more drinks on one occasion? 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 Gender Identity Not on file Sexual Orientation Not on file Last Filed Vital Signs Vital Sign Reading Time Taken Comments Blood Pressure 125/80 12/15/2018 7:24 PM CDT Pulse 78 12/15/2018 7:24 PM CDT Temperature 36.2 C (97.2 F) 12/17/2020 5:01 PM CDT Respiratory Rate 18 12/15/2018 7:24 PM CDT Oxygen Saturation 97% 12/15/2018 7:24 PM CDT Inhaled Oxygen Concentration - - Weight 88.5 kg (195 lb) 03/20/2025 1:05 PM CDT Height 167.6 cm (5' 6) 03/20/2025 1:05 PM CDT Body Mass Index 31.47 03/20/2025 1:05 PM CDT Plan of Treatment Upcoming Encounters Date Type Department Care Team (Late st Contact Info) Description 04/17/2025 7:30 AM CDT Hospital Encounter [facility] Surgery at [facility] [address] [place] [address] Mikhail Vargas MD [address] [facility] [place] [address] 04/17/2025 7:30 AM CDT - 04/17/2025 9:45 AM CDT Surgery [facility] Surgery at [facility] [address] [place] [address] Mikhail Vargas MD [address] [facility] [place] [address] RIGHT ELBOW ARTHROSCOPIC DEBRIDEMENT, REMOVAL OF OSTEOPHYTES [...] Outside Reference (01/18/2025 8:29 AM CDT) Impressions RAD[facility] - 01/18/2025 8:29 AM CDT These images are for Reference purposes only and have not been reviewed by [facility]. There will be no report generated by a [facility] Radiologist. Narrative [facility]_P[facility] - 01/18/2025 8:29 AM CDT EXAMINATION: Images For Reference Purposes Only us Mikhail Vargas MD IMG CT PROCEDURES Fin al Result Performing Organization Address [facility] Co de Phone Number [facility] * XR Outside Reference (01/18/2025 8:28 AM CDT) Impressions [facility] - 01/18/2025 8:28 AM CDT These images are for Reference purposes only and have not been reviewed by [facility]. There will be no report generated by a [facility] Radiologist. Narrative [facility]CR[facility] - 01/18/2025 8:28 AM CDT EXAMINATION: Images For Reference Purposes Only us Mikhail Vargas MD IMG XR PROCEDURES Fin al Result Performing Organization Address [facility] de Phone Number [facility] * PSA screen (06/18/2020 10:02 AM CDT) PSA <0.1 < OR = 4.0 ng/mL [email or web address] Comment: The total PSA value from this assay system is standardized against the WHO standard. The test result will be approximately 20% lower when compared to the equimolar-standardized total PSA (Lisa [place]). Comparison of serial PSA results should be [...] ORDERABLES Final Re sult Performing Organization Address [facility] Co de Phone Number [email or web address] [address] [address] [address] from Last 3 Months or Most Recently Relevant to Health Maintenance Insurance MEDICARE [facility] [id number] MEDICARE [facility] MEDICARE MEDICARE [facility] [id number] * Guarantor: CARLOS SHAH Account Type Relation to Patient Date of Phone Billing Address Personal/Family Advance Directives For more information, please contact: [phone] * Full Code (Latest Code Status on File) Date Activated Date Inactivated Comments 12/10/2018 2:20 PM 12/11/2018 9:07 PM Care Teams Customer Support Executive Relationship Specialty Start Date End Date Charanjit Patrick MD [address] [address] PCP - General Family Medicine 09/06/18
--- OUTSIDE RECORDS SUMMARY | 2025-03-22 17:03 | XMS_ITS | Clinical Summary ---
Author Organization [facility] [address] [place] [id number] Care Team Providers Care Product Marketing Consultant Name Role Phone Charanjit Patrick MD Primary Care Provider [phone] Allergies Active Allergy Reactions Criticality Noted Date [...] by mouth every morning Gummies Active mv-mn/C/glutamin/ lysin/[id number] (AIRBORNE, ASCORBATE SODIUM, ORAL)Indications: supplement Take 2 tablets by mouth every morning Gummies Active aspirin-caffeine 500-32.5 mg tabletIndications :Pain Take 2 tablets by mouth nightly Alee Back and Body Active ibuprofen (ADVIL,MOTRIN) 800 mg tablet TK 1 T PO Q 8 H, Pain 0 09/06/20 18 03/20/ 025 Discontinued acetaminophen 500 mg capsuleIndication s:Pain [...] (11/10/2018): Added automatically from request for surgery [id number] Elevated PSA 09/09/2018 Overview (09/09/2018): Added automatically from request for surgery [id number] Encounters Date Type Department Care Team Description 01/24/2025 9:20 AM CDT Office Visit [facility] Orthopaedic Surgery [address] [place] [address] [place] [address] Mikhail Vargas MD Primary osteoarthritis of right elbow 01/18/2025 8:29 AM CDT - 01/18/2025 11:59 PM CDT Hospital Encounter [facility]) [address] [place] [id number] Discharge Disposition: Discharge to home or self care 01/18/2025 8:28 AM CDT - 01/18/2025 11:59 PM CDT Hospital Encounter [facility] ([facility] [address] [place] [address] Discharge Disposition: Discharge to home or self care from Last 3 Months Immunizations Immunization Administration Dates Next Due Influenza, Quad, Adjuvantated, Intramuscular ,07/20/2020 Influenza, Quadrivalent, Spl it, Preservative Free, Intramuscular 07/20/2020 Influenza, Trivalent, Adjuvanted, Intramuscular 08/18/2019 Pneumococcal Conjugate PCV 13 08/18/2019 Pneumococcal Polysaccharide PPV23 07/20/2020 Tdap 01/15/2025 ZOSTER Recombinant 10/02/2020,07/20/2020 Surgical History Surgery Date Site/Laterality Comments HERNIA REPAIR over 10 years ago PROSTATE BIOPSY 09/04/2018 - 10/04/2018 PROSTATECTOMY 12/03/2018 - 01/02/2019 CARPAL TUNNEL RELEASE 10/05/2019 - 10/04/2020 Right ulnar nerve tranposition, trigger finger DENTAL SURGERY couple, last one over 5 years ago Medical History Medical History Date Comments Kidney [...] on file Legal Sex Male 8:09 PM [employer] Gender Identity Not on file Sexual Orientation [...] Description 04/17/2025 7:30 AM CDT Hospital Encounter [facility] Surgery at [address] [address] Mikhail Vargas MD [address] [facility] [place] [address] 04/17/2025 7:30 AM CDT - 04/17/2025 9:45 AM CDT Surgery [facility] Surgery at [address] [address] Mikhail Vargas MD [address] [facility] [place] [address] RIGHT ELBOW ARTHROSCOPIC DEBRIDEMENT, REMOVAL OF OSTEOPHYTES Scheduled Procedures Name Priority Associated Diagnoses Date/Ti me ARTHROSCOPY - DEBRIDEMENT ELBOW Primary osteoarthritis of right elbow 04/17/2025 7:30 AM CDT Health Maintenance Due Date Last Done Comments Colon Cancer Screening-Colonoscopy 1955 Depression Screening 1955 Fall Risk Assessment 1955 Hepatitis C Screening 1955 Hepatitis B Screening 1971 Well Visit 65+ 2018 Covid-19 Vaccine (3 - 2023-2 5 season) 2024 02/07/2021, 01/17/2021 Influenza Vaccine (Season Ended) 2025 09/25/2022, 07/20/2020, 07/20/2020, Additional history exists DTaP/Tdap/Td Vaccine (2 - Td or Tdap) 01/15/2035 01/15/2025 Prostate Cancer Screening-PSA Discontinued , 12/14/2019, 03/15/2019, Additional history exists Pneumococcal vaccine 65+ Completed 07/20/2020, 08/05 Zoster Vaccine Completed 10/02/2020, 07/20/2020 Procedures Procedure Name Priority Date/Time Associated Diagnosis [...] only and have not been reviewed by [facility]iology. There will be no report generated by a [facility] Radiologist. Narrative RAD_PACS[facility] - 01/18/2025 8:29 AM CDT EXAMINATION: Images For Reference Purposes Only Mikhail Vargas MD IMG CT PROCEDURES Fin al Result [facility] * XR Outside Reference (01/18/2025 8:28 AM CDT) Impressions [facility] - 01/18/2025 8:28 AM CDT These images are for Reference purposes only and have not been reviewed by [facility]. There will be no report generated by a [facility] Radiologist. Narrative [facility] - 01/18/2025 8:28 AM CDT EXAMINATION: Images For Reference Purposes Only Mikhail Vargas MD IMG XR PROCEDURES Fin al Result Performing Organization Address City/[facility] Co de Phone Number [facility] * PSA screen (06/18/2020 10:02 AM CDT) PSA <0.1 < OR = 4.0 ng/mL [facility] Comment: The total PSA value from this assay system is standardized against the WHO standard. The test result will be approximately 20% lower when compared to the equimolar-standardized total PSA ([place]). Comparison of serial PSA results should be [...] ORDERABLES Final Re sult Performing Organization Address [facility] Co de Phone Number [employer] [address] [place] [address] from Last 3 Months or Most Recently Relevant to Health Maintenance Insurance MEDICARE COUNTS INCLUDE 234 BEDS AT THE [facility] [id number] MEDICARE [employer] [facility] MEDICARE MEDICARE COUNTS INCLUDE 234 BEDS AT THE [facility] [id number] * Guarantor: CARLOS SHAH Account Type Relation to Patient Date of Phone Billing Address Personal/Family Advance Directives For more information, please contact: [phone] * Full Code (Latest Code Status on File) Date Activated Date Inactivated Comments 12/10/2018 2:20 PM 12/11/2018 9:07 PM Care Teams Product Marketing Consultant Relationship Specialty Start Date End Date Charanjit Patrick MD [address] [address] PCP - General Family Medicine 09/06/18
--- NOTE | 2025-03-22 17:45 | ED_ITS ---
HPI - Back Pain/Injury General Chief Complaint: Back Pain/Injury <Corazon Foster PA-C - Last Filed: 03/22/25 18:03> Stated Complaint: back pain x 1 week <Corazon Foster PA-C - Last Filed: 03/22/25 18:03> Time Seen by Provider: 03/22/25 17:45 <Corazon Foster PA-C - Last Filed: 03/22/25 18:03> Focused HPI: Patient is a 69 y/o male who presents to the ED via EMS with report of back pain. Patient reports he has had a dull pain in his R lower back for the past few weeks. Went to an UC, rx'd prednisone and muscle relaxers. States this helped his pain slightly. States pain became worse today to the point he could not move or stand straight up, so EMS was called. Patient was given 8mg of Morphine en route to the ED. Denies radiation of pain in BLE, saddle anesthesia, bowel or bladder incontinence, dysuria, hematuria. Does have hx of kidney stones. GENERAL: Well-appearing, obese with BMI of 31.5, and in no acute distress. HEAD: Normocephalic, atraumatic. CHEST: Clear to auscultation. ?No respiratory distress. HEART: Regular rate and rhythm.? MSK: No midline spinal tenderness. Mild TTP over R lumbosacral region. NEURO: ?Alert and oriented x3. Patient screened in triage and initial orders placed.? ?Additional care and disposition to be based upon?diagnostic testing and treatment. <Corazon Foster PA-C - Last Filed: 03/22/25 18:03> Focused HPI: Patient is a 69 y/o male who presents to the ED via EMS with report of back pain. Patient reports he has had a dull pain in his R lower back for the past few weeks. Went to an UC, rx'd prednisone and muscle relaxers. States this helped his pain slightly. States pain became worse today to the point he could not move or stand straight up, so EMS was called. Patient was given 8mg of Morphine en route to the ED. Denies radiation of pain in BLE, saddle anesthesia, bowel or bladder incontinence, dysuria, hematuria. Does have hx of kidney stones. Patient states his location of pain and quality of pain resembles the last time he had shingles in this area. He did not have any classical skin findings of shingles previously but was treated with valacyclovir and had resolution of symptoms after 3 days and thinks this could be related today. Denies any trauma or injury. No neurological deficits or complaints. GENERAL: Well-appearing, obese with BMI of 31.5, and in no acute distress. HEAD: Normocephalic, atraumatic. CHEST: Clear to auscultation. ?No respiratory distress. HEART: Regular rate and rhythm.? MSK: No midline spinal tenderness. Mild TTP over R lumbosacral region isolated to the T10 dermatome on the right side, no involvement over the T11 or T12 region. NEURO: ?Alert and oriented x3. Patient screened in triage and initial orders placed.? ?Additional care and disposition to be based upon?diagnostic testing and treatment. <Scott Hyde MD - Last Filed: 03/23/25 07:22> Source: patient <Corazon Foster PA-C - Last Filed: 03/22/25 18:03> Mode of arrival: EMS <JORGE Dai Last Filed: 03/22/25 18:03> Limitations: no limitations <Corazon Foster PA-C - Last Filed: 03/22/25 18:03> Related Data Home Medications: Home Medications ?Medication ?Instructions ?Recorded ?Confirmed ?Last Taken ?Type omeprazole 20 mg capsule,delayed 20 mg PO DAILY 10/19/23 06/12/24 Unknown History release <JORGE Dai Last Filed: 03/22/25 18:03> Allergies/Adverse Reactions: Allergies Allergy/AdvReac Type Severity Reaction Status Date / Time Penicillins Allergy Intermediate Hives Verified 03/22/25 15:12 Sulfa (Sulfonamide Allergy Intermediate Hives Verified 03/22/25 15:12 Antibiotics) <JORGE Dai Last Filed: 03/22/25 18:03> Review of Systems Review of Systems: As reviewed above in the HPI <Scott Hyde MD - Last Filed: 03/23/25 07:22> [facility] Past Medical History Medical History: Medical History Otitis externa Otitis media Tear of medial meniscus of right knee Arthritis of right elbow Oral abscess Obesity (BMI 30.0-34.9) Motion sickness Decreased range of motion of right elbow Thoracic radiculitis right-sided thoracic pain with epidural injection T10-T11 12/17/2021 Acute bronchitis (~10/21/21) Trigger finger, right middle finger Trigger finger, left middle finger Right hand pain Hand paresthesia Left hand pain Carpal tunnel syndrome on both sides Vitamin B12 normal at 564 with folic acid 12.4 on 03/11/2022. Chronic low back pain with left-sided sciatica (~12/28/20) MRI on 04/30/2021 reveals mild to moderate degenerative disc disease and arthritis with moderate bulging disc at L5-S1 with facet arthropathy worse on the left than the right. Instability of left knee joint Low back pain radiating to left lower extremity Acute internal derangement of left knee Left knee pain Abscessed tooth BMI 31.0-31.9,adult Acute bilateral low back pain with left-sided sciatica (~12/28/20) Mixed hyperlipidemia Total cholesterol 238, triglycerides 107, HDL 49, LDL 167 on 03/11/2022. LDL 160 on 12/14/2020. Abnormal fasting glucose (12/14/20) Glucose 107 with hemoglobin A1c 5.8 on 03/11/2022. glucose 120 on 12/15/2019. BMI 32.0-32.9,adult Bilateral knee pain Right knee pain complex medial meniscus tear with chondromalacia of the patella on MRI 06/23/2023. Colon cancer screening Patient declines any colon cancer screening Encounter for wellness examination in adult Actinic keratosis (12/14/20) Fungal infection of toenail Ingrown toenail of right foot Seasonal allergic rhinitis Intrinsic sphincter deficiency Erectile dysfunction after radical prostatectomy Testosterone 602 with free testosterone 65.8 on 03/11/2022. Urinary bladder incontinence Cholelithiasis NOS Chronic low back pain without sciatica Chronic right-sided thoracic back pain Prostate cancer radical prostatectomy. <Corazon Foster PA-C - Last Filed: 03/22/25 18:03> Surgical History Surgical History: Surgical History History of arthroscopy of right knee Right knee medial meniscectomy July 14, 2023 S/P left inguinal herniorrhaphy History of radical prostatectomy <Corazon Foster PA-C - Last Filed: 03/22/25 18:03> Family History Family History: Family History Mother Asthma Father No problems noted. Other Family history of allergic disorder <Corazon Foster PA-C - Last Filed: 03/22/25 18:03> Social History Social History: Social History Smoking status: Never smoker Second hand tobacco smoke exposure: No Alcohol intake: never Substance use: never Substance use type: does not use Do You Feel Safe in your Home?: Yes Lack of Transportation: No Lack of Food: Never True Current Housing: I Have Housing Concerned About Future Housing: No Difficulty Paying Gas/Electric Bills: No Difficulty Paying for Meds: No Currently Unemployed: No Education: Bachelor's Degree Difficulty w/ Childcare or Family Care: No Living arrangements: with family Additional living arrangements comments: Occupation/Education: occupation 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 HEAD: Normocephalic, atraumatic. CHEST: Clear to auscultation. ?No respiratory distress. HEART: Regular rate and rhythm.? MSK: No midline spinal tenderness. Mild TTP over R lumbosacral region isolated to the T10 dermatome on the right side, no involvement over the T11 or T12 region. NEURO: ?Alert and oriented x3. No saddle anesthesias, ambulatory in the examination room, no weakness in the flexors of the legs, no weakness in the extensors legs. EHL FHL 5/5. No sensory deficits or ataxia. No footdrop. <Scott Hyde MD - Last Filed: 03/23/25 07:22> Course Vital Signs Vital signs: Vital Signs Temperature 36.2 C L 03/22/25 15:28 Pulse Rate 70 03/22/25 15:28 Respiratory Rate 18 03/22/25 15:28 Blood Pressure 131/74 03/22/25 15:28 Pulse Oximetry 97 03/22/25 15:28 Oxygen Delivery Room Air 03/22/25 15:28 Temperature 36.2 C L 03/22/25 15:28 Pulse Rate 59 L 03/22/25 20:58 Respiratory Rate 16 03/22/25 20:58 Blood Pressure 120/78 03/22/25 20:58 Pulse Oximetry 97 03/22/25 20:58 Oxygen Delivery Room Air 03/22/25 15:28 <Corazon Foster PA-C - Last Filed: 03/22/25 18:03> Vital Signs Temperature 36.2 C L 03/22/25 15:28 Pulse Rate 70 03/22/25 15:28 Respiratory Rate 18 03/22/25 15:28 Blood Pressure 131/74 03/22/25 15:28 Pulse Oximetry 97 03/22/25 15:28 Oxygen Delivery Room Air 03/22/25 15:28 Temperature 36.2 C L 03/22/25 15:28 Pulse Rate 59 L 03/22/25 20:58 Respiratory Rate 16 03/22/25 20:58 Blood Pressure 120/78 03/22/25 20:58 Pulse Oximetry 97 03/22/25 20:58 Oxygen Delivery Room Air 03/22/25 15:28 <Scott Hyde MD - Last Filed: 03/23/25 07:22> MDM - Back Pain/Injury MDM Narrative Medical decision making narrative: MSE by ALLISON in triage. <Corazon Foster PA-C - Last Filed: 03/22/25 18:03> MSE by ALLISON in triage. 69-year-old male presenting with right-sided low back pain radiating towards the right flank. States it feels very similar to last time he had shingles. He previously did not have any manifestations of skin disease or lesions with shingles but it was responsive to steroids and antivirals. He states that he has no neurological deficits but had significant pain in this area causing him difficulty ambulating and so he called EMS. He did receive pain medications in route and states he feels significantly better and denies any complaints at this time. He has pain isolated and localized over the T10 dermatome and that is the distribution of his previous shingles. Denies any skin lesions but feels very similar to his previous episode. Denies any trauma or injury, denies any hematuria, dysuria, footdrop. Examination shows neurological deficits or any red flag signs or symptoms of cauda equina or conus medullaris. Differential includes musculoskeletal pain, shingles without skin manifestation, kidney stone, renal colic, bulging disc, lumbago. CT abdomen pelvis with lumbar region was obtained. Patient provided Valium Tylenol oxycodone and Toradol and re-evaluated. CT scan shows no uropathy or obstructive disease, degenerative disc disease without any significant stenosis. Solid lesion the right lung base for non emergent follow-up recommended. I went over the CT scan results with the patient he felt significantly improved after treatments. He is ambulatory here in the emergency department and has no complaints. No neurological findings on examination. We will treat him for suspected potential shingles given the historical features and previous treatment results. Patient provided acyclovir here. He will be sent home with steroids, acyclovir and pain medicines. He was given return precautions and discharge instructions. <Scott Hyde MD - Last Filed: 03/23/25 07:22> Medical Records Attestation: I reviewed the patient's medical records. <Scott Hyde MD - Last Filed: 03/23/25 07:22> Imaging Data Attestation: I personally reviewed and interpreted this imaging study as follows: <Scott Hyde MD - Last Filed: 03/23/25 07:22> My impression: Impressions Miscellaneous CT Procedure 03/22/25 18:53 IMPRESSION: No obstructive uropathy. Degenerative disease within the lower lumbosacral spine, as detailed above. 3 mm solid nodule within the right lung base for which nonemergent follow-up with a dedicated noncontrast enhanced chest CT is suggested for further evaluation. <Scott Hyde MD - Last Filed: 03/23/25 07:22> Discharge Plan Discharge Clinical Impression: Shingles, Lumbago, Degenerative disc disease <JORGE Dai Last Filed: 03/22/25 18:03> Patient Disposition: Home <JORGE Dai Last Filed: 03/22/25 18:03> Condition: Stable <JORGE Dai Last Filed: 03/22/25 18:03> Instructions: Antibiotic Form, Shingles (ED), Lower Back Exercises (ED) <JORGE Dai Last Filed: 03/22/25 18:03> Additional Instructions: Your CT scan shows no kidney findings, no kidney stones, there is degenerative disc disease in lumbar spine but no significant bulging causing any neuropathy. Your symptoms isolated to the T10 area of your back feel very similar to her previous shingles so we will treat this as potential shingles neuropathy with a combination of antivirals and steroids as well as pain medications. You also have an incidentally found small 3 mm lung nodule which needs non emergent follow-up with your primary doctor outpatient and unrelated to your complaints today. Return to the ER if you have increased pain in your back, you develop lower extremity weakness/numbness/paralysis, you have numbness or tingling in your private parts, or you are unable to control your ability to urinate/stool. <Corazon Foster PA-C - Last Filed: 03/22/25 18:03> Patient Language: Sinhala <JORGE Dai Last Filed: 03/22/25 18:03> Prescriptions: New valacyclovir 1 gram tablet 1,000 mg PO Q8H 7 Days Qty: 21 0RF ketorolac 10 mg tablet 10 mg PO Q8H PRN (Reason: pain) 5 Days Qty: 20 0RF Rx Instructions: maximum total duration of 5 days from all oral, intranasal, or parenteral formulations lidocaine 5 % adhesive patch,medicated 1 patch topical DAILY Qty: 15 0RF Rx Instructions: leave on most painful area for up to 12 hrs oxycodone 5 mg tablet 5 mg PO Q8H PRN (Reason: pain) Qty: 10 0RF prednisone 50 mg tablet 50 mg PO DAILY 5 Days Qty: 5 0RF No Action prednisone 20 mg tablet 40 mg PO DAILY 5 Days Qty: 10 0RF cyclobenzaprine 5 mg tablet 5 mg PO TID PRN (Reason: muscle spasm) Qty: 15 0RF omeprazole 20 mg capsule,delayed release(DR/EC) 20 mg PO DAILY <Corazon Foster PA-C - Last Filed: 03/22/25 18:03> Follow-up/Referrals: Charanjit Patrick MD [Primary Care Provider] - <Corazon Foster PA-C - Last Filed: 03/22/25 18:03> Time of Disposition: 21:14 <Corazon Foster PA-C - Last Filed: 03/22/25 18:03> 21:14 <Scott Hyde MD - Last Filed: 03/23/25 07:22>
[2025-03-22 18:11] VITALS: BP 150/89; PULSE 82; RESP 18; O2SAT 96
[2025-03-22] MEDS: KETOROLAC 30 MG/ML VIAL (*BKC) IV PUSH (18:15)
[2025-03-22] MEDS: ACETAMINOPHEN 500 MG TABLET 1000 MG PO (18:16)
--- OUTSIDE RECORDS SUMMARY | 2025-03-22 20:38 | XMS_ITS | Referral Summary ---
Author Organization [facility] [place] [address] Address [address] [place] [address] Care Team Providers Care Front End Drupal Developer Name Role Phone Charanjit Patrick MD Primary Care Provider [phone] Encounters Date Type Department Care Team Description 01/24/2025 9:20 AM CDT Office Visit [facility] Orthopaedic Surgery [address] [facility] 1st Floor [address] [place] [address] Mikhail Vargas MD Primary osteoarthritis of right elbow 01/18/2025 8:29 AM CDT - 01/18/2025 11:59 PM CDT Hospital Encounter [facility] [address] [place] [address] Discharge Disposition: Discharge to home or self care 01/18/2025 8:28 AM CDT - 01/18/2025 11:59 PM CDT Hospital Encounter [facility] ([facility]) [facility] [place] [address] Discharge Disposition: Discharge to home or self [...] by mouth every morning Gummies Active mv-mn/C/glutamin/ lysin/gxuo647 (AIRBORNE, ASCORBATE SODIUM, ORAL)Indications: supplement Take 2 [...] (11/10/2018): Added automatically from request for surgery [id number] Elevated PSA 09/09/2018 Overview (09/09/2018): Added automatically from request for surgery [id number] Immunizations Immunization Administration Dates Next Due Influenza, [...] on file 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 Gender Identity Not on file Sexual [...] 04/17/2025 7:30 AM CDT Hospital Encounter [facility] at [facility] [address] [place] [address] Mikhail Vargas MD [address] [facility] [place] [address] 04/17/2025 7:30 AM CDT - 04/17/2025 9:45 AM CDT Surgery [facility] at [facility] [address] [place] [address] Mikhail Vargas MD [address] [facility] [place] [address] RIGHT ELBOW ARTHROSCOPIC DEBRIDEMENT, REMOVAL OF OSTEOPHYTES [...] Outside Reference (01/18/2025 8:29 AM CDT) Impressions [facility] - 01/18/2025 8:29 AM CDT These images are for Reference purposes only and have not been reviewed by [facility]. There will be no report generated by a [facility] Radiologist. Narrative [facility]_PACS[facility] - 01/18/2025 8:29 AM CDT EXAMINATION: Images For Reference Purposes Only us Mikhail Vargas MD IMG CT PROCEDURES Fin al Result Performing Organization Address [facility] Co de Phone Number [facility] * XR Outside Reference (01/18/2025 8:28 AM CDT) Impressions [facility] - 01/18/2025 8:28 AM CDT These images are for Reference purposes only and have not been reviewed by [facility]. There will be no report generated by a [facility] Radiologist. Narrative RAD_PACRere[facility] - 01/18/2025 8:28 AM CDT EXAMINATION: Images For Reference Purposes Only us Mikhail Vargas MD IMG XR PROCEDURES Fin al Result Performing Organization Address [facility] de Phone Number [facility] * PSA screen (06/18/2020 10:02 AM CDT) PSA <0.1 < OR = 4.0 ng/mL [facility] Comment: The total PSA value from this assay system is standardized against the WHO standard. The test result will be approximately 20% lower when compared to the equimolar-standardized total PSA (Lisa [place]). Comparison of serial PSA results should be [...] ORDERABLES Final Re sult Performing Organization Address [facility] Co de Phone Number [facility] [address] [address] from Last 3 Months or Most Recently Relevant to Health Maintenance Insurance MEDICARE [facility]MERLY [facility] [id number] MEDICARE [facility] MEDICARE MEDICARE FORMERLY [facility] [id number] * Guarantor: CARLOS SHAH Account Type Relation to Patient Date of Phone Billing Address Personal/Family Advance Directives For more information, please contact: [phone] * Full Code (Latest Code Status on File) Date Activated Date Inactivated Comments 12/10/2018 2:20 PM 12/11/2018 9:07 PM Care Teams Front End Drupal Developer Relationship Specialty Start Date End Date Charanjit Patrick MD [address] [address] PCP - General Family Medicine 09/06/18
--- OUTSIDE RECORDS SUMMARY | 2025-03-22 20:38 | XMS_ITS | Clinical Summary ---
Author Organization [facility] [address] [place] [address] Care Team Providers Care Depot Manager Name Role Phone Charanjit Patrick MD Primary Care Provider [phone] Allergies Active Allergy Reactions Criticality Noted Date [...] by mouth every morning Gummies Active mv-mn/C/glutamin/ lysin/afkb798 (AIRBORNE, ASCORBATE SODIUM, ORAL)Indications: supplement Take 2 [...] (11/10/2018): Added automatically from request for surgery [id number] Elevated PSA 09/09/2018 Overview (09/09/2018): Added automatically from request for surgery [id number] Encounters Date Type Department Care Team Description 01/24/2025 9:20 AM CDT Office Visit [facility] Orthopaedic Surgery [address] [facility] 1st [address] [place] [address] Mikhail Vargas MD Primary osteoarthritis of right elbow 01/18/2025 8:29 AM CDT - 01/18/2025 11:59 PM CDT Hospital Encounter [facility]) [address] [place] [address] Discharge Disposition: Discharge to home or self care 01/18/2025 8:28 AM CDT - 01/18/2025 11:59 PM CDT Hospital Encounter [facility] ([facility]) [address] [place] [address] Discharge Disposition: Discharge to home or self [...] on file 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 [place] [address] 04/17/2025 7:30 AM CDT - 04/17/2025 9:45 AM CDT Surgery [facility] Surgery at [address] [address] Mikhail Vargas MD [address] [facility] [place] [address] RIGHT ELBOW ARTHROSCOPIC DEBRIDEMENT, REMOVAL OF OSTEOPHYTES [...] only and have not been reviewed by [facility]. There will be no report generated by a [facility] Radiologist. Narrative [facility]_P[facility] - 01/18/2025 8:29 AM CDT EXAMINATION: Images For Reference Purposes Only Mikhail Vargas MD IMG CT PROCEDURES Fin al Result [facility] * XR Outside Reference (01/18/2025 8:28 AM CDT) Impressions [facility] - 01/18/2025 8:28 AM CDT These images are for Reference purposes only and have not been reviewed by [facility]. There will be no report generated by a [facility] Radiologist. Narrative [facility] - 01/18/2025 8:28 AM CDT EXAMINATION: Images For Reference Purposes Only Mikhail Vargas MD IMG XR PROCEDURES Fin al Result Performing Organization Address [facility] Co de Phone Number [facility] * PSA screen (06/18/2020 10:02 AM CDT) PSA <0.1 < OR = 4.0 ng/mL [facility] Comment: The total PSA value from this assay system is standardized against the WHO standard. The test result will be approximately 20% lower when compared to the equimolar-standardized total PSA (Lisa [place]). Comparison of serial PSA results should be [...] ORDERABLES Final Re sult Performing Organization Address [facility] Co de Phone Number [facility] [address] [place] [address] from Last 3 Months or Most Recently Relevant to Health [place] [address] [facility] [id number] MEDICARE [employer] [facility] MEDICARE MEDICARE [facility] [id number] * Guarantor: CARLOS SHAH Account Type Relation to Patient Date of Phone Billing Address Personal/Family Advance Directives For more information, please contact: [phone] * Full Code (Latest Code Status on File) Date Activated Date Inactivated Comments 12/10/2018 2:20 PM 12/11/2018 9:07 PM Care Teams Depot Manager Relationship Specialty Start Date End Date Charanjit Patrick MD [address] [address] PCP - General Family Medicine 09/06/18
[2025-03-22 20:58] VITALS: BP 120/78; PULSE 59; RESP 16; O2SAT 97
[2025-03-22] MEDS: diazePAM INJ (*CRX) 10 MG/2 ML SYRINGE 2 MG IV PUSH (21:02)
[2025-03-22] MEDS: valACYclovir HCL 500 MG TABLET 1000 MG PO (21:19)
== END 2025-03-22 21:28 | disposition home or self-care (01) ==
PROVIDERS: Emergency Provider Student in an Organized Health Care Education/Training Program; PCP Family Medicine
DX: B02.9 Zoster without complications (principal); M54.50 Low back pain, unspecified; M51.369 Other intervertebral disc degeneration, lumbar region without mention of lumbar back pain or lower extremity pain; Z85.46 Personal history of malignant neoplasm of prostate; E78.2 Mixed hyperlipidemia
CPT/HCPCS: 72131; 74176; 96374; 96375; 99284; A9270; J1885; J3360

== ENCOUNTER 2025-05-18 12:40 | Outpatient (CLI) | payer OTHER, SELFPAY ==
--- NOTE | ~2025-05-18 | MR_ITS ---
EXAMINATION: MR lumbar spine wo con DATE: 05/18/2025 13:58 INDICATION: Worsening low back pain TECHNIQUE: Magnetic resonance imaging (MRI) of the lumbar spine was performed without intravenous con trast. Sequences included sagittal T2-weighted FSE, sagittal T2-weighted FS FSE, sagittal T1-weighted FSE, and axial T2-weighted FSE. COMPARISON: CT dated 03/22/2025 and MR dated 04/30/2021 FINDINGS: Transitional S1 segment with rudimentary S1-S2 disc space. There are 5 more cephalad nonrib-bearing l umbar segments. Alignment is normal. Vertebral body heights are normal. Normal marrow signal. Severe disc height loss at L5-S1. Remaining disc heights are normal. The conus medullaris terminates at the cephalad aspect of L2. There is normal signal in the caudal spinal cord. Paravertebral soft tissues are unremarkable. The following disc levels are specifically discussed: T12-L1: The disc does not extend beyond the endplate margin. There is minimal bilateral facet joint o steoarthritis. There is no neural foraminal stenosis. There is no central canal stenosis. L1-L2: The disc does not extend beyond the endplate margin. There is mild right and moderate left fac et joint osteoarthritis. There is no neural foraminal stenosis. There is no central canal stenosis. L2-L3: The disc does not extend beyond the endplate margin. There is mild bilateral facet joint osteo arthritis. There is no neural foraminal stenosis. There is no central canal stenosis. L3-L4: Mild diffuse disc bulge. There is mild bilateral facet joint osteoarthritis. There is mild lef t neural foraminal stenosis. There is no central canal stenosis. L4-L5: Mild diffuse disc bulge. There is severe bilateral facet joint osteoarthritis. There is mild l eft neural foraminal stenosis. There is no central canal stenosis. L5-S1: Annular fissure and posterior disc osteophyte complex. There is mild left and moderate right f acet joint osteoarthritis. There is mild left and mild to moderate right neural foraminal stenosis. T here is mild central canal stenosis along with narrowing of the lateral recesses, mild on the left an d moderate with suggestion of some mass effect on the traversing S1 nerve root on the right. IMPRESSION: 1. No significant interval change in severe lumbosacral and mild lumbar spondylosis. Reviewed, dictated and finalized at location A. IMPRESSION: 1. No significant interval change in severe lumbosacral and mild lumbar spondyl osis.
== END 2025-05-18 12:41 | disposition home or self-care (01) ==
LOC: GOSHIMG 12:41
PROVIDERS: PCP Neurological Surgery; Visit Provider Family Medicine
DX: M54.41 Lumbago with sciatica, right side (principal); G89.29 Other chronic pain
CPT/HCPCS: 72148

== ENCOUNTER 2025-09-06 11:08 | Emergency (ER) | payer OTHER, SELFPAY ==
--- NOTE | ~2025-09-06 | XR_ITS ---
XR knee LT min 4V 09/06/2025 11:37 Indication: Left knee pain Procedure: 4 views left knee Comparison: 02/22/2021 Findings: Mild patellofemoral compartment osteoarthritis. No fracture, subluxation or dislocation. No significant joint effusion. No foreign bodies. Impression: 1: No acute fracture. Reviewed, dictated and finalized at location I. O PERSONALITY Impression: 1: No acute fracture.
--- NOTE | 2025-09-06 11:18 | ED_ITS ---
HPI - Extremity Injury (Lower) General Chief Complaint: Extremity Injury, Lower Stated Complaint: L KNEE INJURY Time Seen by Provider: 09/06/25 11:20 Source: patient Mode of arrival: ambulatory Limitations: no limitations History of Present Illness HPI Narrative: Gerard is a 70-year-old male patient presenting to the clinic today with complaints of left superior medial knee pain. He reports he fell on the ice ye sterday and injured the knee. He states he did not full popped the time. Has put ice on and elevated. Has not taken any medications for pain. Rates his pain currently as 6/10. Related Data Home Medications ?Medication ?Instructions ?Recorded ?Confirmed ?Last Taken ?Type omeprazole 20 mg capsule,delayed 20 mg PO DAILY 09/06/25 Unknown History release Allergies Allergy/AdvReac Type Severity Reaction Status Date / Time Penicillins Allergy Intermediate Hives Verified 09/06/25 11:18 Sulfa (Sulfonamide Allergy Intermediate Hives Verified 09/06/25 11:18 Antibiotics) Review of Systems Review of Systems: Pertinent positives per HPI. Patient denies any fever, chills, rash, headache, visual changes, dizziness, cough, runny nose, sore throat, shortness of breath, chest pain, palpitations, nausea, vomiting, diarrhea, constipation, abdominal pain, or any urinary issues. [facility] Past Medical History Medical History Pulmonary nodule less than 1 cm in diameter with low risk for malignant neoplasm (~03/22/25) 3.3 mm solid pulmonary nodule right lower lobe noted on CT in the ER 03/22/2025, new onset since 2022. Chronic bilateral low back pain with right-sided sciatica CT lumbar spine 03/22/2025 with disc protrusion at L3-L4 with mild impingement on the right. Disc herniation at L4-L5 with mass effect on spinal canal and bilateral neural foramina. Otitis externa Otitis media Tear of medial meniscus of right knee Arthritis of right elbow Oral abscess Obesity (BMI 30.0-34.9) Motion sickness Decreased range of motion of right elbow Thoracic radiculitis right-sided thoracic pain with epidural injection T10-T11 12/17/2021 Acute bronchitis (~10/21/21) Trigger finger, right middle finger Trigger finger, left middle finger Right hand pain Hand paresthesia Left hand pain Carpal tunnel syndrome on both sides Vitamin B12 normal at 564 with folic acid 12.4 on 03/11/2022. Chronic low back pain with left-sided sciatica (~12/28/20) MRI on 04/30/2021 reveals mild to moderate degenerative disc disease and arthritis with moderate bulging disc at L5-S1 with facet arthropathy worse on the left than the right. Instability of left knee joint Low back pain radiating to left lower extremity Acute internal derangement of left knee Left knee pain Abscessed tooth BMI 31.0-31.9,adult Acute bilateral low back pain with left-sided sciatica (~12/28/20) Mixed hyperlipidemia Total cholesterol 238, triglycerides 107, HDL 49, LDL 167 on 03/11/2022. LDL 160 on 12/14/2020. Abnormal fasting glucose (12/14/20) Glucose 107 with hemoglobin A1c 5.8 on 03/11/2022. glucose 120 on 12/15/2019. BMI 32.0-32.9,adult Bilateral knee pain Right knee pain complex medial meniscus tear with chondromalacia of the patella on MRI 06/23/2023. Colon cancer screening Patient declines any colon cancer screening Encounter for wellness examination in adult Actinic keratosis (12/14/20) Fungal infection of toenail Ingrown toenail of right foot Seasonal allergic rhinitis Intrinsic sphincter deficiency Erectile dysfunction after radical prostatectomy Testosterone 602 with free testosterone 65.8 on 03/11/2022. Urinary bladder incontinence Cholelithiasis NOS Chronic low back pain without sciatica Chronic right-sided thoracic back pain Prostate cancer radical prostatectomy. Surgical History Surgical History History of arthroscopy of right knee Right knee medial meniscectomy July 14, 2023 S/P left inguinal herniorrhaphy History of radical prostatectomy Family History Family History Mother Asthma Father No problems noted. Other Family history of allergic disorder Social History Social History Smoking status: Never smoker Second hand tobacco smoke exposure: No Alcohol intake: never Substance use: never Substance use type: does not use Lack of Transportation: No Lack of Food: Never True Current Housing: I Have Housing Concerned About Future Housing: No Difficulty Paying Gas/Electric Bills: No Difficulty Paying for Meds: No Currently Unemployed: No Education: Bachelor's Degree Difficulty w/ Childcare or Family Care: No Living arrangements: with family Additional living arrangements comments: Occupation/Education: occupation 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 There is no relevant family history pertinent to the patient complaint. Exam Narrative: General: Well-developed, well nourished, in no apparent distress Head: Normocephalic, atraumatic. Cardio: Regular rate and rhythm, s1 and s2 normal, no murmur appreciated. Resp: Clear to auscultation bilaterally, no rhonchi, rales, wheezing or rubs. Musculoskeletal: No deformity, mild swelling to the left knee when compared to the right knee,tender to palpation over the superior medial left knee, pain with extension and flexion of the knee, grossly normal range of motion, muscle strength strong and equal, peripheral pulse strong, trace edema in bilateral lower extremities, no cyanosis, walking with a single point cane, normal gait and station Course Course Level of Care: Express Care Visit Vital Signs Vital signs: Vital Signs Temperature 36.1 C L 09/06/25 11:19 Pulse Rate 65 09/06/25 11:19 Respiratory Rate 20 09/06/25 11:19 Blood Pressure 104/79 09/06/25 11:19 Pulse Oximetry 100 09/06/25 11:19 Temperature 36.1 C L 09/06/25 11:19 Pulse Rate 65 09/06/25 11:19 Respiratory Rate 20 09/06/25 11:19 Blood Pressure 104/79 09/06/25 11:19 Pulse Oximetry 100 09/06/25 11:19 [facility] MDM Narrative Medical decision making narrative: At the time of visit patient is resting comfortably on the exam table. Patient appears to be nontoxic. Complaints of left superior medial knee pain. He reports he fell on the ice yesterday and injured the knee while at work yesterday. He states he did not feel or hear a pop at that time. Has put ice on and elevated. Has not taken any medications for pain. Rates his pain currently as 6/10. On exam there is no deformity, mild swelling to the left knee when compared to the right knee,tender to palpation over the superior media l left knee, pain with extension and flexion of the knee, grossly normal range of motion, muscle strength strong and equal, peripheral pulse strong, trace edema in bilateral lower extremities. Walking with a single point cane. X-ray of the left knee was ordered Diagnostics: X-ray of the left knee was performed and negative in the clinic today for any sign of fracture or malalignment. He does have some mild osteoarthritis of the patellofemoral joint. Plan: I suspect patient has acute knee pain/contusion with some osteoarthritis of the patellofemoral joint. Supportive measures were discussed with the patient and they voiced understanding discharge instructions and agrees to treatment plan. Return precautions reviewed Differential Diagnosis Differential Diagnosis: Patella fracture, tibia fracture, femur fracture, inter derangement of the knee, knee sprain, contusion, soft tissue injury Imaging Data Radiologist's impression: ITS Impressions Knee X-Ray 09/06/25 11:38 Impression: 1: No acute fracture. Discharge Plan Discharge Clinical Impression: Osteoarthritis of left patellofemoral joint Acute knee pain Qualifiers: Laterality: left Qualified Code(s): M25.562 - Pain in left knee Patient Disposition: Home Condition: Stable Instructions: Antibiotic Form, Osteoarthritis (ED), Knee Pain (ED) Additional Instructions: X-rays negative for any sign of fracture or malalignment. Does show mild osteoarthritis of the patellofemoral joint Rest, ice, elevate, and wear nils wrap as directed May take Tylenol/motrin for pain as discussed. Gradually bear weight Follow up with your PCP if symptoms persist more than 1 week. Patient Language: Kazakh Prescriptions: No Action cyclobenzaprine 5 mg tablet 5 mg PO TID PRN (Reason: muscle spasm) Qty: 15 0RF omeprazole 20 mg capsule,delayed release(DR/EC) 20 mg PO DAILY gabapentin 300 mg capsule 300 mg PO TID 30 Days Qty: 90 3RF Rx Instructions: Start with 1 capsule at night. After one week, increase to one capsule twice a day. After another week, increase to three times per day Follow-up/Referrals: Charanjit Patrick MD [Primary Care Provider, Family Practice] Stand Alone Forms: Work/School Release IP Time of Disposition: 11:53 Quality NIHSS Nursing Documentation ED NIHSS nursing documentation: reviewed/agree
[2025-09-06 11:19] VITALS: BP 104/79; PULSE 65; RESP 20; TEMP 36.1; O2SAT 100
== END 2025-09-06 12:08 | disposition home or self-care (01) ==
PROVIDERS: Emergency Provider Nurse Practitioner Family; PCP Family Medicine
DX: M17.12 Unilateral primary osteoarthritis, left knee (principal); M25.562 Pain in left knee; E78.2 Mixed hyperlipidemia; M19.021 Primary osteoarthritis, right elbow; E66.9 Obesity, unspecified; Z68.30 Body mass index [BMI] 30.0-30.9, adult; Z85.46 Personal history of malignant neoplasm of prostate; Z90.79 Acquired absence of other genital organ(s)
CPT/HCPCS: 73564; 99213; G0463